=== PATIENT | male | born 1955 | race Caucasian/White ===

== ENCOUNTER 2022-04-10 08:48 | Outpatient (CLI) | payer BC, SELFPAY ==
[2022-04-10 13:51] LABS: Chloride* 102 mmol/L (96-114); Potassium* 4.3 mmol/L (3.6-5.1); Sodium* 140 mmol/L (135-149)
[2022-04-10 13:54] LABS: Carbon Dioxide* 30 mmol/L (20-32); Creatinine* 0.7 mg/dL (0.5-1.5); Estimated Glomerular Filt Rate 100 ml/min
[2022-04-10 13:55] LABS: Blood Urea Nitrogen* 21 mg/dL (7-30); Glucose* 113 mg/dL (60-115)
[2022-04-10 14:44] LABS: Vitamin B12* 206 pg/mL (243-894)
== END 2022-04-10 08:49 | disposition home or self-care (01) ==
PROVIDERS: Visit Provider Family Medicine
DX: Z00.00 Encounter for general adult medical examination without abnormal findings (principal); G62.9 Polyneuropathy, unspecified; R73.01 Impaired fasting glucose; Z86.79 Personal history of other diseases of the circulatory system
CPT/HCPCS: 80048; 82607; 84443

== ENCOUNTER 2022-05-14 08:52 | Outpatient (CLI) | payer BC, SELFPAY ==
[2022-05-14 14:33] LABS: Vitamin B12* 531 pg/mL (243-894)
== END 2022-05-14 08:53 | disposition home or self-care (01) ==
PROVIDERS: Visit Provider Family Medicine
DX: E53.8 Deficiency of other specified B group vitamins (principal)
CPT/HCPCS: 82607

== ENCOUNTER 2022-08-17 09:54 | Outpatient (CLI) | payer BC, SELFPAY ==
[2022-08-17 14:26] LABS: Cholesterol* 136 mg/dL (90-199)
[2022-08-17 14:27] LABS: HDL Cholesterol* 40 mg/dL (>=40); LDL Cholesterol Calculated 81 mg/dL (<100); Triglycerides* 74 mg/dL (40-149)
== END 2022-08-17 09:55 | disposition home or self-care (01) ==
PROVIDERS: PCP Family Medicine; Visit Provider Family Medicine
DX: Z86.39 Personal history of other endocrine, nutritional and metabolic disease (principal)
CPT/HCPCS: 80061

== ENCOUNTER 2022-09-26 09:52 | Outpatient (CLI) | payer BC, SELFPAY ==
[2022-09-26 13:42] LABS: Chloride* 105 mmol/L (96-114); Sodium* 142 mmol/L (135-149)
[2022-09-26 13:43] LABS: Potassium* 4.2 mmol/L (3.6-5.1)
[2022-09-26 13:45] LABS: Carbon Dioxide* 32 mmol/L (20-32); Creatinine* 0.7 mg/dL (0.5-1.5); Estimated Glomerular Filt Rate 100 ml/min
[2022-09-26 13:46] LABS: Blood Urea Nitrogen* 13 mg/dL (7-30); Calcium* 9.1 mg/dL (8.4-10.6); Glucose* 116 mg/dL (60-115)
== END 2022-09-26 09:53 | disposition home or self-care (01) ==
PROVIDERS: PCP Family Medicine; Visit Provider Family Medicine
DX: Z01.818 Encounter for other preprocedural examination (principal)
CPT/HCPCS: 80048

== ENCOUNTER 2022-11-13 10:28 | Outpatient (CLI) | payer BC, SELFPAY | END 2022-11-13 10:29 | disposition home or self-care (01) | LOC: OP CLINIC 10:30 | PROVIDERS: PCP Family Medicine; Visit Provider Surgery | DX: Z12.11 Encounter for screening for malignant neoplasm of colon (principal); K57.30 Diverticulosis of large intestine without perforation or abscess without bleeding; Z86.010 Personal history of colon polyps | CPT/HCPCS: 45378; 99153; J2250; J3010 ==

== ENCOUNTER 2023-03-04 15:29 | Outpatient (CLI) | payer BC, SELFPAY | END 2023-03-04 15:30 | disposition home or self-care (01) | LOC: LKVREF 15:30 | PROVIDERS: PCP Family Medicine; Visit Provider Family Medicine | DX: E66.9 Obesity, unspecified (principal); G62.9 Polyneuropathy, unspecified; L82.1 Other seborrheic keratosis; R91.1 Solitary pulmonary nodule; N40.0 Benign prostatic hyperplasia without lower urinary tract symptoms | CPT/HCPCS: 82607 ==

== ENCOUNTER 2023-03-12 09:36 | Outpatient (CLI) | payer BC, SELFPAY ==
--- NOTE | 2023-03-12 10:00 | CRLHL7_ITS ---
For Patients: As a result of the Century Cures Act, medical imaging exams and procedure reports are released immediately into your electronic medical record. You may view this report before your referring provider. If you have questions, please contact your health care provider. Indication: Solitary pulmonary nodule seen on heart scan in 2017, [facility] h/o lung cancer per patient Technique: Noncontrast CT chest Please note that all CT scans at this facility use dose modulation, iterative reconstruction, and/or weight-based dosing when appropriate to reduce radiation dose to as low as reasonably achievable. Comparison: None Findings: The visualized thyroid is within normal limits. Atherosclerotic disease including coronary artery calcifications. No pleural or pericardial effusion. Pancreatic atrophy. Punctate nonobstructing stones within both visualized kidneys. No calcified gallstone. Normal visualized liver and spleen. No enlarged mediastinal, hilar or axillary lymph nodes. Multiple pleural-based calcified nodular densities are present bilaterally. No suspicious pulmonary nodule or mass. No fracture. Impression: Benign calcified pleural-based nodules bilaterally. No suspicious nodules. No adenopathy. Bilateral nonobstructing nephrolithiasis. Please note that all CT scans at this facility use dose modulation, iterative reconstruction, and/or weight-based dosing when appropriate to reduce radiation dose to as low as reasonably achievable. Dictated by Jose Santos MD @ 03/12/2023 12:31:28 PM (Electronically Signed)
== END 2023-03-12 09:37 | disposition home or self-care (01) ==
LOC: CT 09:39
PROVIDERS: PCP Family Medicine; Visit Provider Family Medicine
DX: R91.1 Solitary pulmonary nodule (principal); N20.0 Calculus of kidney
CPT/HCPCS: 71250

== ENCOUNTER 2023-09-12 10:38 | Outpatient (CLI) | payer BC, SELFPAY ==
--- OUTSIDE RECORDS SUMMARY | 2023-09-12 10:42 | XMS_ITS | Referral Summary ---
Author Name Unknown Organization [facility] Address [address] [place] [address] Care Team Providers Care Public Health Aides Teacher Name Role Phone Unavailable Primary Care Provider Unavailabl e Social History Tobacco Use Types Packs/Day Years Used Date Smoking Tobacco: Never Assessed Adolescent Education Answer Date Record ed Getting School Help Needed Not on file 05/14 Sex and Gender Information Value Date Recorded Sex Assigned at Not on file Gender Identity Not on file Sexual Orientation Not on file Plan of Treatment Not on file
--- OUTSIDE RECORDS SUMMARY | 2023-09-12 10:42 | XMS_ITS | Encounter Summary ---
Author Name Unknown Organization [facility] [email or web address] [facility] Address [address] [address] Phone Care Team Providers Care Cake Press Operator Name Role Phone Bg Longoria MD Primary Care Provider Gabby Foster APRN, DROP HAMMER SETTER UP Unavailable + [phone] Reason for Referral * (Routine) - New Request Specialty Diagnoses / Procedures Referred By Garcia ingram Referred To Contact Endoscopy Diagnoses History of colon polyps Randy Frausto MD [address] [address] [facility] [address] [place] [id number] Referral ID Status Reason Start Date Expiration Date V isits Requested Visits Authorized [id number] New Request 04/03/2023 04/03/2024 1 1 Question Answer Schedule procedure for: Screening Colonoscopy Comments 5 year Encounter Details Date Type Department Care Team (Late st Contact Info) Description 04/03/2023 Orders Only [facility] GI 2023 [place], [place] [id number] Randy Frausto MD [address] [phone] History of colon polyps (Primary Dx) Social History Tobacco Use Types Packs/Day Years Used Date Smoking Tobacco: Never Smokeless Tobacco: Never Alcohol Use Standard Drinks/Week Comments Yes 13 (1 standard drink = 0.6 oz pu re alcohol) 1-2 PHQ-2 Answer Date Recorded PHQ-2 Total 0 03/07/2022 Sex and Gender Information Value Date Recorded Sex Assigned at Not on file Gender Identity Not on file Sexual Orientation Not on file Job Start Date Occupation Industry Not on file Not on file Not on file documented as of this encounter Functional Status Functional Status Response Date of Assess ment Patient's Vision Adequate to Safely Complete Daily Activities Yes 12/07/2019 Patient's Memory Adequate to Safely Complete Daily Activities Yes 12/07/2019 Cognitive Status Response Date of Assessm ent Patient's Judgment Adequate to Safely Complete Daily Activities Yes 12/07/2019 documented as of this encounter Plan of Treatment Scheduled Referrals Name Type Priority Associated Diagnoses Orde r Schedule SCHEDULE ENDOSCOPY PROCEDURE [facility] REFERRAL Routine History of colon polyps Ordered: 04/03/2023 documented as of this encounter Visit Diagnoses Diagnosis History of colon polyps- Primary Personal history of colonic polyps documented in this encounter Care Teams Cake Press Operator Relationship Specialty [place] [address] [place] [id number] PCP - General Family Medicine 10/29/12 Gabby Foster APRN, DROP HAMMER SETTER UP [address] [place] [phone] PCP - PC Team Family Medicine 10/30/16 documented as of this encounter
--- OUTSIDE RECORDS SUMMARY | 2023-09-12 10:42 | XMS_ITS | Clinical Summary ---
Author Name Unknown Organization [facility] Address [address] [address] Phone Care Team Providers Care Milking Machine Technician Name Role Phone Bg Longoria MD Primary Care Provider Gabby Foster APRN, ELECTRICAL INSPECTOR Unavailable +- [phone] Allergies No known active allergies Medications Medication Sig Dispensed Refills Start Date End Date Status aspirin EC 81 MG tablet Take 1 Tab by mouth one time a day. Do not split or crush. 100 Tab 0 10/16/2016 Active cholecalciferol, vitamin D3, 1000 Unit (25 mcg) tablet Take 1 Tab by mouth one time a day. 90 Tab 1 06/01/2019 Active amLODIPine (Norvasc) 10 MG tabletIndications:Es sential hypertension Take 1 Tablet by mouth one time a day. 90 Tablet 3 05/17/2021 Active atorvaSTATin (Lipitor) 40 MG tabletIndications:Mi xed hyperlipidemia Take 1 Tablet by mouth at bedtime. 90 Tablet 3 05/17/2021 Active losartan (Cozaar) 100 MG tabletIndications:Es sential hypertension Take 1 Tablet by mouth one time a day. 90 Tablet 3 05/17/2021 Active doxepin (SINEquan) 75 MG capsule TAKE TWO CAPSULES BY MOUTH DAILY AT BEDTIME 180 Capsule 3 07/11/2021 Active eszopiclone (Lunesta) 3 MG tabletIndications:Ps ychophysiological insomnia TAKE 1 TABLET BY MOUTH ONCE DAILY IMMEDIATELY BEFORE BEDTIME; DO NOT CRUSH OR BREAK TABLET. 90 Tablet 1 12/14/2021 Active ibuprofen (Motrin) 800 MG tablet Take 1 Tablet by mouth every eight hours as needed for Pain . Administer with food. 90 Tablet 0 2021 Active baclofen (Lioresal) 10 MG tabletIndications:St rain of lumbar region, initial encounter TAKE ONE TABLET BY MOUTH THREE TIMES DAILY with food. NEEDS APPOINTMENT BY 02/21/2023 FOR MORE REFILLS. 60 Tablet 0 01/23/2023 Active Active Problems Problem Noted Date Diagnosed Date Routine general medical exam ination at a health care facility 05/17/2021 Overview: 2018, Ritesh Family in Retiring from [facility] 2021 Not much hobbies left Has kids and grandkids in Moving to [facility] in [place] 03/2022 Last Assessment & Plan: Yearly blood work Keep active Eat Mediterranean diet Left hand pain 05/17/2021 Overview: Left 5th mcp, mobic helped, negative labs, normal uric acid Last Assessment & Plan: Due to persistent swelling, prednisone trial 05/17/2021 Left wrist pain 10/03/2020 Overview: Mild widening of SL space on xray 10/03/2020, brace given, declined orthopedics referral IFG (impaired fasting glucose) 11/11/2018 Overview: Normal A1C Last Assessment & Plan: Lower carbs, weight loss Class 1 obesity due to exces s calories with serious comorbidity and body mass index (BMI) of 33.0 to 33.9 in adult 11/06/2016 Coronary artery disease due to lipid rich plaque 10/01/2016 Overview: Based on coronary calcium score 2017 Lung nodule 09/30/2016 Overview: Found on heart scan 09/2016, repeat in one year, 5mm Essential hypertension 05/15/2016 Overview: Controlled Last Assessment & Plan: Continue medications (losartan, amlodipine) and follow up yearly Psychophysiological insomnia 05/15/2016 Overview: On lunesta Last Assessment & Plan: Sleep hygiene lunesta Overactive bladder 10/11/2015 Overview: Controlled on medications Last Assessment & Plan: Follow up with urology yearly Mixed hyperlipidemia 11/02/2014 Osteoarthritis Overview: Followed by orthopedics, dr. victor Had hip injection 2020 Last Assessment & Plan: Follow up with orthopedics as needed Resolved Problems Problem Noted Date Diagnosed Date Resolved Date Bilateral primary osteoarthritis of knee 02/22/2022 03/13/2022 Decreased range of motion of both knees 02/22/2022 03/13/2022 Bilateral leg weakness 02/22/202203/13 Skin lesion of chest wall 10/03/2020 Overview: Removed 10/03/2020, path pending Fracture of radial neck, left, closed 04/15/2019 06/18/2019 Stiffness in joint 04/15/2019 9 Pain aggravated by activities of daily living 04/15/20 19 06/18/2019 Contusion of left knee and l ower leg, subsequent encounter 01/28/2019 10/03/2020 Contusion of left forearm, s ubsequent encounter 01/28/2019 10/03/2020 Arm contusion, right, subsequent encounter 01/28/2019 10/03/2020 Abrasion of finger of left h and, subsequent encounter 01/28/2019 10/03/2020 Contusion of left hand, subsequent encounter 9 10/03/2020 S/P rotator cuff repair 07/26/201711/17 Shoulder weakness, left 07/26/201711/17 Decreased range of motion of left shoulder 07/26/2017 11/26/2017 Acute pain of left shoulder 07/26/2017 11/19/2017 S/P trigger finger release 05/07/2017 1 Pain in finger of left hand 05/07/2017 05/28/2017 Trigger finger, right index finger 05/15/2016 04/04/2017 Stiffness in joint 10/18/2015 7 Aftercare 10/18/2015 05/15/2016 Seborrheic keratosis 08/17/2015 017 Trigger finger of left hand 11/02/2014 05/15/2016 Atypical chest pain 10/29/2012 10/27/19 14 Pulmonary nodules/lesions, multiple 05/10/2012 11/02/2014 Prediabetes 05/09/2012 05/15/2016 Obesity 05/09/2012 11/06/2016 Thoracic back pain 09/11/2011 2 Overview: IMO Update 05/29 HCD (health care directive) 06/07/2008 11/19/2017 Insomnia 05/15/2016 Hypertension 05/15/2016 Anxiety 05/17/2021 Immunizations Name Administration Dates Next Due COVID-19 Vaccine: Pfizer [place] ster (Purple- 12+ Yrs) [facility] 05/28/2021 COVID-19 Vaccine: Pfizer Dos e 1 (Purple- 12+ Yrs) [facility] 10/12/2020 COVID-19 Vaccine: Pfizer Dos e 2 (Purple- 12+ Yrs) [facility] 11/04/2020 Influenza High Dose Quadrivalent 06/22/2020 Influenza Quad Preservative Free 05/15/2016,04/20 Influenza Quad Split 05/16/2017 Influenza Seasonal A,B Inj 6-35mo 06/17/2018 Influenza Seasonal Inj A,B 05/28/2021 Influenza Seasonal Inj A,B High Dose 07/28/2019 Influenza Seasonal Inj A,B P reservative Free 06/19/2012 Pneumovax 23 06/11/2021 TD >7yrs With Preservative 03/20/2005 Tdap (7 years and older) 12/07/2019,10/24/2012,0 03/20/2005 Zoster Zostavax (Shingles) 06/11/2021,11/02/2014 Surgical History Surgery Date Site/Laterality Comments ROTATOR CUFF REPAIR LUMBAR SPINE SURGERY L 5 COLONOSCOPY 10/2012 normal SHOULDER ARTHROSCOPY 07/19/2017 Shoulder/Left Procedure: LEFT SHOULDER ARTHROSCOPIC DECOMPRESSION, DISTAL CLAVICLE EXCISION, MINI-OPEN ROTATOR CUFF TEAR REPAIR; Surgeon: Chace Victor MD; Location: [facility] MAIN OR Medical devices from this surgery are in the Medical Devices section. COLONOSCOPY 11/12/2017 N/A Procedure: COLONOSCOPY DIAGNOSTIC; Surgeon: Randy Frausto MD; Location: [facility] ENDOSCOPY Medical History Medical History Date Comments Hyperlipidemia Insomnia Hypertension Osteoarthritis GERD (gastroesophageal reflux disease) Anxiety Colon polyps HCD (health care directive) 06/07/2008 Family History Medical History Relation Comments Lung Cancer Brother 1 Lung Cancer Brother 2 Schizophrenia Brother 2 Cardiovascular Disease Brother 3 Diabetes Brother 3 Cardiovascular Disease Brother 4 Unknown Cause Father Diabetes Father Lipid Elevation Father Vascular Disease Mother Relation Status Comments Brother 1 Brother 2 Brother 3 Brother 4 Father Mother Sister 1 Alive Sister 2 Alive Social History Tobacco Use Types Packs/Day Years Used Date Smoking Tobacco: Never Smokeless Tobacco: Never Tobacco Cessation:Counseling Given: No Alcohol Use Standard Drinks/Week Comments Yes 13 (1 standard drink = 0.6 oz pu re alcohol) 1-2 PHQ-2 Answer Date Recorded PHQ-2 Total 0 03/07/2022 Sex and Gender Information Value Date Recorded Sex Assigned at Not on file Gender Identity Not on file Sexual Orientation Not on file Job Start Date Occupation Industry Not on file Not on file Not on file Obstetrics History Last Filed Vital Signs Vital Sign Reading Time Taken Comments Blood Pressure 133/84 12/26/2021 9:17 AM CDT Pulse 71 12/26/2021 9:17 AM CDT Temperature 37.2 ??C (98.9 ??F) 12/26/2021 9:17 AM CD T Respiratory Rate 18 12/26/2021 9:17 AM CDT Oxygen Saturation 98% 05/07/2021 9:12 AM CDT Inhaled Oxygen Concentration - - Weight 120.4 kg (265 lb 6.9 oz) 03/07/2022 9:11 AM CDT Height 182.9 cm (6') 03/07/2022 9:11 AM CDT Body Mass Index 36 03/07/2022 9:11 AM CDT Plan of Treatment Health Maintenance Due Date Last Done Comments CT Colonography 1955 Cologuard 1955 FIT/FOBT 1955 Sigmoidoscopy 1955 RSV Vaccination (60+ yrs) (Abrysvo/Arexvy) (1 - 1-dose 60+ series) 2013 Shingrix (Zoster recombinant) vaccine (Standing Order) (1 of 2) 08/06/2021 Pneumococcal Vaccine: 65+ yrs (Standing Order) (2 of 2 - PCV) 06/11/2022 06/11/2021 COLONOSCOPY Q 5 YRS 11/12/2022 11/12/2017, 11/12/2017, 11/12/2012 (Previously completed) COVID-19 Vaccine (4 - 2022- season) 2023 05/28/2021, 11/04/2020, 10/12/2020 Influenza Vaccine Seasonal (Standing Order) (#1) 2023 05/28/2021, 06/22/2020, 07/28/2019, Additional history exists VASCULAR LIPID PROFILE Q5 YEARS (Standing Order) 05/17/2026 05/17/2021, 12/28/2019, 11/11/2018, Additional history exists Colonoscopy 11/13/2027 11/12/2017, 11/12/2017 Colorectal Cancer Screening 11/13/2027 TETANUS (Standing Order) 12/06/2029 020, 10/24/2012, 03/20/2005, Additional history exists PERTUSSIS (Standing Order) Completed 12/06, 10/24/2012, 03/20/2005 HPV Vaccine (Standing Order) Aged Out No longer eligible based on patient's age to complete this topic Hepatitis B Vaccine (Standing Order) Aged Out No longer eligible based on patient's age to complete this topic Medical Devices Implanted Type Area Dietary Tech Device Identifier Shelf Expiration Date Model / Serial / Lot [employer] Suture Double Loaded Swivelock 4.75 X 22 Mm Art [id number] - [id number] Implanted:Qty: 1 on 07/19/2017 by Chace Victor MD at [facility] Left: Shoulder ARTHREX 01/16/2019 [id number] / [id number] / [id number] Advance Directives For more information, please contact: [phone] Documents on File Type Date Recorded Patient Nurse Expl anation Advance Directive 06/07/2008 11:34 AM ADV ANCE DIRECTIVE Latest Code Status on File Code Status Date Activated Date Inactivated Comments Full Code 07/19/2017 3:48 PM 07/20/2017 4:11 PM Code Status History Code Status Date Activated Date Inactivated Comments Full Code 07/19/2017 10:49 AM 07/19/2017 3:48 PM Care Teams Milking Machine Technician Relationship Specialty [place] [address] [place] [address] PCP - General Family Medicine 10/29/12 Gabby Foster BUSINESS JOB TITLES, ELECTRICAL INSPECTOR [address] [place] [address] PCP - PC Team Family Medicine 10/30/16
--- OUTSIDE RECORDS SUMMARY | 2023-09-12 10:42 | XMS_ITS | Encounter Summary ---
Author Name Unknown Organization [facility] Address [address] [place] [address] Care Team Providers Care Cardiac Monitor Technician Name Role Phone Unavailable Primary Care Provider Unavailabl e Encounter Details Date Type Department Care Team (Late st Contact Info) Description 04/23/2023 10:35 AM CDT [facility] [address] [place] [address] Restless legs syndrome (RLS) (Primary Dx); Peripheral nerve disorder Social History Tobacco Use Types Packs/Day Years Used Date Smoking Tobacco: Never Assessed Sex and Gender Information Value Date Recorded Sex Assigned at Not on file Gender Identity Not on file Sexual Orientation Not on file COVID-19 Exposure Response Date Recorded In the last 10 days, have yo u been in contact with someone who was confirmed or suspected to have Coronavirus/COVID-19? No / Unsure 04/23/2023 10:38 AM CDT documented as of this encounter Plan of Treatment Not on file documented as of this encounter Procedures Procedure Name Priority Date/Time Associated Diagnosis Comments PROTEIN ELECTROPHORESIS, SERUM Routine 04/23/2023 10:50 AM CDT Restless legs syndrome (RLS) Peripheral nerve disorder TOTAL PROTEIN, SERUM FOR ELP Routine 04/23/2023 10:50 AM CDT Restless legs syndrome (RLS) Peripheral nerve disorder PROTEIN IMMUNOFIXATION SERUM Routine 04/23/2023 10:50 AM CDT Restless legs syndrome (RLS) Peripheral nerve disorder TSH WITH FREE T4 REFLEX Routine 04/23/20 10:50 AM CDT Restless legs syndrome (RLS) Peripheral nerve disorder FERRITIN Routine 04/23/2023 10:50 AM CDT Restless legs syndrome (RLS) Peripheral nerve disorder PROTEIN ELECTROPHORESIS Routine 04/23/20 10:50 AM CDT Restless legs syndrome (RLS) Peripheral nerve disorder documented in this encounter Results * Protein Electrophoresis, Serum (04/23/2023 10:50 AM CDT) Albumin 4.3 3.7 - 5.1 g/dL 04/24/2023 2:29 PM CDT [facility] C[facility]/PROT/E NDO Alpha 1 0.3 0.2 - 0.4 g/dL 04/24/2023 2:29 PM CDT [facility] SPECIAL[facility] CORE/PROT/E NDO Alpha 2 0.7 0.5 - 0.9 g/dL 04/24/2023 2:29 PM CDT [facility] CORE/PROT/E NDO Beta Globulin 0.8 0.6 - 1.0 g/dL 04/24/2023 2:29 PM CDT [facility] CORE/PROT/E NDO Gamma Globulin 0.8 0.7 - 1.6 g/dL 04/24/2023 2:29 PM CDT [facility] CORE/PROT/E NDO Monoclonal Peak 0.0 <=0.0 g/dL 04/24/2023 2:29 PM CDT [facility] CORE/PROT/E NDO ELP Interpretation Essentially normal electrophoretic pattern with no obvious monoclonal protein seen by capillary electrophoresis. However, a very small monoclonal protein band was seen in this sample by immunofixation which is a much more sensitive method for monoclonal detection. See immunofixation report on same specimen. Pathologic significance requires clinical correlation. Andrea Bernard M.D., Ph.D., Pathologist ([phone]). 04/24/2023 2:29 PM CDT [facility] CORE/PROT/E NDO Blood STRUCTURE OF LEFT UPPER LIMB / Unknown Venipuncture / Unknown 04/23/2023 10:50 AM CDT 04/23/2023 10:51 AM CDT Giovanni Moreira MD LAB - BLOOD ORDER DEVON [facility] SPECIAL[facility] CORE/PROT/ENDO Specialty Core/Prot/Endo [address] [facility] [address] [facility], Room [address] [phone] * Total Protein, Serum for ELP (04/23/2023 10:50 AM CDT) Total Protein Serum for ELP 7.0 6.4 - 8.3 g/dL 04/23/2023 2:27 PM CDT [facility] Blood STRUCTURE OF LEFT UPPER LIMB / Unknown Venipuncture / Unknown 04/23/2023 10:50 AM CDT 04/23/2023 10:51 AM CDT Giovanni Moreira MD LAB - BLOOD ORDER [facility] LABORATORY [facility] Core Lab [address] [facility] [address] [facility], [address] [id number], [facility] [phone] * Protein Immunofixation Serum (04/23/2023 10:50 AM CDT) Immunofixation ELP Very small monoclonal IgM immunoglobulin of lambda light chain type. Pathologic significance requires clinical correlation. Andrea Bernard M.D., Ph.D., Pathologist ([phone]) 04/24/2023 2:22 PM CDT SPECIALTY CORE/PROT/E NDO Blood STRUCTURE OF LEFT UPPER LIMB / Unknown Venipuncture / Unknown 04/23/2023 10:50 AM CDT 04/23/2023 10:51 AM CDT Giovanni Moreira MD LAB - BLOOD ORDER DEVON [facility] SPECIAL[facility] CORE/PROT/ENDO Specialty Core/Prot/Endo [address] [facility] [address] [facility], [address] [phone] * TSH with free T4 reflex (04/23/2023 10:50 AM CDT) TSH 1.99 0.30 - 4.20 uIU/mL 04/23/2023 11:38 AM CDT [facility] Blood STRUCTURE OF LEFT UPPER LIMB / Unknown Venipuncture / Unknown 04/23/2023 10:50 AM CDT 04/23/2023 10:51 AM CDT Giovanni Moreira MD LAB - BLOOD ORDER DEVON [facility] Lab [address] Lab (1st floor, no room number) [place] [address], [facility] [phone] * Ferritin (04/23/2023 10:50 AM CDT) Ferritin 87 31 - 409 ng/mL 04/23/2023 5:59 PM CDT [facility] Blood STRUCTURE OF LEFT UPPER LIMB / Unknown Venipuncture / Unknown 04/23/2023 10:50 AM CDT 04/23/2023 10:51 AM CDT Giovanni Moreira MD LAB - BLOOD ORDER DEVON [facility] Core Lab [address] [facility], [address] [place] [address], [place] [phone] documented in this encounter Visit Diagnoses Diagnosis Restless legs syndrome (RLS)- Primary 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
--- OUTSIDE RECORDS SUMMARY | 2023-09-12 10:42 | XMS_ITS | Clinical Summary ---
Author Name Unknown Organization [facility] Address [address] [place] [address] Care Team Providers Care Herb Digger Name Role Phone Unavailable Primary Care Provider Unavailabl e Social History Tobacco Use Types Packs/Day Years Used Date Smoking Tobacco: Never Assessed Adolescent Education Answer Date Record ed Getting School Help Needed Not on file 05/14 Sex and Gender Information Value Date Recorded Sex Assigned at Not on file Gender Identity Not on file Sexual Orientation Not on file Plan of Treatment Health Maintenance Due Date Last Done Comments ADVANCE CARE PLANNING 1955 ANNUAL REVIEW OF HM ORDERS 1953 CT COLONOGRAPHY 1953 FIT 1955 FLEX SIG 1953 sDNA (Cologuard) 1955 COLONOSCOPY 12/19/1963 COLORECTAL CANCER SCREENING 12/19/1963 HEPATITIS C SCREENING 12/19/1971 LIPID 1988 RSV VACCINE ( & 60+) (1 - 1-dose 60+ series) 2013 AORTIC ANEURYSM SCREENING (SYSTEM ASSIGNED) 2018 FALL RISK ASSESSMENT 2018 MEDICARE ANNUAL WELLNESS VISIT 2018 Pneumococcal Vaccine: 65+ Years (2 of 2 - PCV) 06/11/2022 06/11/2021 COVID-19 Vaccine ( - 2022- season) 2023 11/29/2021, 05/28/2021, 11/04/2020, Additional history exists INFLUENZA VACCINE (#1) 2023 2, 05/28/2021, 05/28/2021, Additional history exists PHQ-2 (once per calendar year) 2023 DTAP/TDAP/TD IMMUNIZATION (5 - Td or Tdap) 12/06/2029 12/07/2019, 10/24/2012, 03/20/2005, Additional history exists ZOSTER IMMUNIZATION Completed 07/19/2022, 06/11/2021, 06/11/2021, Additional history exists HPV IMMUNIZATION Aged Out No longer e ligible based on patient's age to complete this topic IPV IMMUNIZATION Aged Out No longer e ligible based on patient's age to complete this topic MENINGITIS IMMUNIZATION Aged Out No l onger eligible based on patient's age to complete this topic RSV MONOCLONAL ANTIBODY Aged Out No l onger eligible based on patient's age to complete this topic
--- OUTSIDE RECORDS SUMMARY | 2023-09-12 10:42 | XMS_ITS | Encounter Summary ---
Author Name Unknown Organization [facility] [email or web address] [facility] Address [address] [address] Phone Care Team Providers Care Mixer And Scaler Name Role Phone Bg Longoria MD Primary Care Provider [phone] Gabby Foster APRN, RAILROAD DESIGN CONSULTANT Unavailable + [phone] Reason for Visit * Reason Comments Refill Request baclofen (Lioresal) 10 MG Encounter Details Date Type Department Care Team (Late st Contact Info) Description 12/14/2022 Refill [facility] [address] [place] [address] [place] [address] [place] [address] Refill Request (baclofen (Lioresal) 10 MG) Social History Tobacco Use Types Packs/Day Years [...] Yes 12/07/2019 documented as of this encounter Ordered Prescriptions Prescription Sig Dispensed Refills Start Date End Da te baclofen (Lioresal) 10 MG tabletIndications:Strain of lumbar region, initial encounter TAKE ONE TABLET BY MOUTH THREE TIMES DAILY with food 60 Tablet 0 12/14/2022 01/22/2023 documented in this encounter Miscellaneous Notes * Telephone Encounter - Jes Hardwick, RN - 12/14/2022 3:41 PM CDT Bg Longoria MD, Nurse Care Line is unable to refill this medication per the [facility] Medication Refill Standing Orders. Medication cannot be delegated. Would you like to authorize this request? Thank You. documented in this encounter Plan of Treatment Not on file documented as of this encounter Visit Diagnoses Diagnosis Strain of lumbar region, initial encounter documented in this encounter Discontinued Medications Medication Sig Discontinue Reason Start Date End Da te baclofen (Lioresal) 10 MG tabletIndications:Strain of lumbar region, initial encounter TAKE 1 TABLET BY MOUTH THREE TIMES DAILY. TAKE WITH FOOD. 08/06/2022 12/14/2022 documented as of this encounter Care Teams Mixer And Scaler Relationship Specialty [place] [address] [place] [phone] PCP - General Family Medicine 10/29/12 Gabby Foster, PUBLIC HEALTH MICROBIOLOGIST, RAILROAD DESIGN CONSULTANT [address] [place] [phone] PCP - PC Team Family Medicine 10/30/16 documented as of this encounter
--- OUTSIDE RECORDS SUMMARY | 2023-09-12 10:42 | XMS_ITS | Encounter Summary ---
Author Name Unknown Organization [facility] [employer] [facility] [facility] Address [address] [address] Phone Care Team Providers Care Rug Cleaner Hand Name Role Phone Vinh Youssef MD Primary Care Provider Gabby Foster APRN, CHARGER TESTER Unavailable + [phone] Reason for Visit * Reason Comments Refill Request Baclofen Encounter Details Date Type Department Care Team (Late st Contact Info) Description 01/22/2023 Refill [facility]INE [address] [place] [address] [place] [address] [place] [address] Refill Request (Baclofen) Social History Tobacco Use Types Packs/Day Years [...] End Da te baclofen (Lioresal) 10 MG tabletIndications:Strai n of lumbar region, initial encounter TAKE ONE TABLET BY MOUTH THREE TIMES DAILY with food. NEEDS APPOINTMENT BY 02/21/2023 FOR MORE REFILLS. 60 Tablet 0 01/23/2023 documented in this encounter Miscellaneous Notes * Telephone Encounter - Ankit Tolbert, RN - 01/22/2023 9:35 PM CDT Vinh Youssef MD, Nurse Care Line is unable to refill this medication per the [facility] Medication Refill Protocol. Would you like to authorize this request? * Telephone Encounter - Utility, Refill Wizard - 01/22/2023 6:44 PM CDT baclofen (Lioresal) 10 MG tablet [Pharmacy Med Name: Baclofen Oral Tablet 10 MG] Unassigned -> Medication cannot be delegated. Last qualifying visit: 12/26/2021 (with VINH YOUSSEF) Next scheduled visit: None Last ordered by VINH YOUSSEF: 12/14/2022 (39 days ago) QTY: 60, Refills: 0, Sig: take one tablet by mouth three times daily with food (unchanged) Last fill date from pharmacy: 12/14/2022 PATIENT IS DUE FOR: - OFFICE VISIT for multiple medications including doxepin (SINEquan) 75 MG capsule (Recommended on 12/14/2022) [facility] Embedded Refills, Reference: [id number], 01/22/2023 6:44:53 PM CDT, Pool: FRANK ([id number]) documented in this encounter Plan of Treatment Not on file documented as of this encounter Visit Diagnoses Diagnosis Strain of lumbar region, initial encounter documented in this encounter Discontinued Medications Medication Sig Discontinue Reason Start Date End Da te baclofen (Lioresal) 10 MG tabletIndications:Strain of lumbar region, initial encounter TAKE ONE TABLET BY MOUTH THREE TIMES DAILY with food 12/14/2022 01/22/2023 documented as of this encounter Care Teams Rug Cleaner Hand Relationship Specialty [place] [address] [email or web address] [address] PCP - General Family Medicine 10/29/12 Gabby Foster, REDYE HAND, CHARGER TESTER [address] [email or web address] [address] PCP - PC Team Family Medicine 10/30/16 documented as of this encounter
--- OUTSIDE RECORDS SUMMARY | 2023-09-12 10:42 | XMS_ITS | Encounter Summary ---
Author Name Unknown Organization [facility] Address [address] [place] [address] Care Team Providers Care Belt Changer Name Role Phone Unavailable Primary Care Provider Unavailabl e Encounter Details Date Type Department Care Team (Latest Contact Info) Description 04/23/2023 Travel Social History Tobacco Use Types Packs/Day Years [...] documented as of this encounter Visit Diagnoses Not on filedocumented in this encounter
--- OUTSIDE RECORDS SUMMARY | 2023-09-12 10:43 | XMS_ITS | Data Portability ---
Author Name Unknown Address [address] [place] [address] Phone [phone] Organization [facility] Address [address] [place] [address] Assessment No assessment recorded. Plan of Treatment Reminders Order Date Submit Date Provider Last Modified By Organization Details Last Modified Time Details Appointments None recorded. Lab PSA, total, serum or plasma 2021 [email or web address] Not available 12:33:41 Referral None recorded. Procedures None recorded. Surgeries None recorded. Imaging None recorded. Medication Orders tamsulosin 0.[address] [id number], [address], [place], [address], 12:25:05 Patient TargetsNo targets recorded. Patient InstructionsNo instructions recorded. Reason for Referral None Reported. Results Created Date Observation Date Name Description Value Unit Range Abnormal Flag LastModifiedBy Organization Detail LastModifiedTime 07/04/2007/02/2022 bladd er scan (PROC ) No observ ation record ed. BARCODE Not Available 07/04/2022 09:13:32 Result Notes None recorded. Procedures Surgical History Date Name Laterality Status Provider Name and Address Organization Details Recorded Time Bladder Scan completed Pascual Kaplan MD [address] [place] [address],[address], [place], [address], [facility] 07/02/2022 11:44:47 Imaging Results Imaging Date Name Status LastModified by Organiz ation Details LastModified Time 07/02/2022 bladder scan (PROC) completed BARCODE Information not available 07/04/2022 09:13:32 Procedure Notes None recorded. Medical Equipment None Reported. Allergies No known drug allergies Medications Name Sig Start Date Stop Date Status Note LastModified by Organization Details LastModified Time atorvastatin 40 mg tablet Take 1 Tablet by mouth at bedtime. active Not Available Not Available No t Available ibuprofen 800 mg tablet Take 1 Tablet by mouth every eight hours as needed for Pain . Administer with food. active Not Available Not Available N ot Available doxepin 75 mg capsule TAKE TWO CAPSULES (150mg) BY MOUTH DAILY AT BEDTIME active Not Available Not Available N ot Available tamsulosin 0.4 mg capsule TAKE 1 CAPSULE BY MOUTH ONE TIME DAILY, needs appointment for further refills 2022 active Not Available Not Available Not Avai lable baclofen 10 mg tablet TAKE 1 TABLET BY MOUTH THREE TIMES DAILY. TAKE WITH FOOD. active Not Available Not Available N ot Available amlodipine 10 mg tablet Take 1 Tablet by mouth one time a day. active Not Available Not Available Not Available gabapentin 100 mg capsule TAKE ONE CAPSULE BY MOUTH THREE TIMES DAILY active Not Available Not Available Not Available losartan 100 mg tablet Take 1 Tablet by mouth one time a day. active Not Available Not Available Not Available eszopiclone 3 mg tablet TAKE 1 TABLET BY MOUTH AT BEDTIME active Not Available Not Available No t Available Vitals Date Recorded Body height Body mass index (BMI) Body weight Provider Name and Address Organization Details Last Updated DateTime 07/02/2022 182.88 cm 35.9 kg/m2 323470.98 g Pascual Kaplan MD [address] [place] [address], [address] 07/02/2022 11:41:53 Social History Question Answer Notes LastModified by Organizat ion Details LastModified Time Tobacco Smoking Status Never Smoker Pascual Kaplan MD [address] [place] [address],[address], [address], [facility] 07/02/2022 11:42:13 What Was The Date Of Your Most Recent Tobacco Screening? 07/02/2022 [email or web address] Information not available 07/02/2022 Sex: Male Functional Status None recorded. Mental Status None recorded. Family History Nothing Reported. Medical History No medical history recorded. Past Encounters Encounter ID Performer Location Encounter Start Date Encounter Closed Date Diagnosis/Indication [id number] Pascual Kaplan MD _Christy [address] [place] [address] 07/02/2022 11:36:33 07/05/2022 16:00:18 Lower urinary tract symptoms due to benign prostatic hypertrophy Health Concerns Section Related Observation LastModified by Organization Detai ls LastModified Time None Recorded Concern Status LastModified by Organization Details LastModified Time None Recorded Advance Directives Directive None Recorded Payers Encounter Date Sequence Insurance Name Policy Number Policy Evans Covered Member ID Evans Member ID Guarantor Name 07/02/2022 1 [facility]: [employer] 111 Leonides Vo [id number] Leonides Vo Notes Date Note Type Note Provider Name and Address Organization Details Recorded Time 07/02/2022 text/html HPI Notes: 66 yo male with history of HTN, hyperlipidemia, BPH, and overactive bladder - presents to establish care (recently k . No Family Hx of prostate cancer. He had seen Dr. Leonides Daley in the past. He has tried Oxybutynin ER 5 mg daily (didn't tolerate it), Myrbetriq 50 mg daily (no significant change) and Flomax 0.4 mg daily (minimal change). He voids every 3-5 hours during the day and 3x/night. He notes slow stream, occasional hesitancy, and rare urgency - denies dysuria. - PVR = 71 mL PSA - 0.40 (2009) - 0.58 (12/28/19) - 0.87 (05/17/21) Pascual Kaplan MD [address] [place] [address],[address], [place], [address], [facility] 07/02/2022 23:02:08
--- OUTSIDE RECORDS SUMMARY | 2023-09-12 10:43 | XMS_ITS | Encounter Summary ---
Author Name Unknown Organization [facility] Address [address] [address] Phone Care Team Providers Care Alumni Relations Manager Name Role Phone Bg Longoria MD Primary Care Provider Gabby Foster APRN, POLISHER SAND Unavailable + [phone] Encounter Details Date Type Department Care Team (Late st Contact Info) Description 06/21/2017 HISTORY and PHYSICAL PREOP [facility] [address] [place] [address] Chace Victor MD [address] [place] [address] Social History Tobacco Use Types Packs/Day Years Used Date Smoking Tobacco: Never Smokeless Tobacco: Never Alcohol Use Standard Drinks/Week Comments Yes 12 (1 standard drink = 0.6 oz pu re alcohol) Sex and Gender Information Value Date Recorded Sex Assigned at Not on file Gender Identity Not on file Sexual Orientation Not on file Job Start Date Occupation Industry Not on file Not on file Not on file documented as of this encounter OR Notes * OR PreOp - Chace Victor MD - 06/21/2017 6:56 AM CDT [facility] Patient Name: LEROY CHAMP Rosa Isela Date of Service: 06/21/2017 : 1955 Age: 61Y Sex: M Site MRN: Patient Loc/Room #: / Provider: Chace Victor MD, Orthopedics PREOPERATIVE HISTORY AND PHYSICAL SITE: NA Going to be operation done on Wednesday, July 19, 2017. HISTORY OF PRESENT ILLNESS: Mr. Vo is a 61-year-old gentleman who I have been following for left shoulder rotator cuff impingement and partial- thickness rotator cuff tear treated with considerable conservative management including antiinflammatories and Tylenol with limited relief. Has seen the physical therapist and has been doing his exercises with limited relief. He has had cortisoneinjection in the shoulder which gave him good relief of this pain but for a very short period of time. Been having pain at night limiting him in terms of activities. Pain with activities with his armout in front of him or out to the side. I believe he has failed conservative management. I have offered him a left shoulder arthroscopy, decompression, distal clavicle excision, and possible mini open rotator cuff tear repair and he wished to proceed. PAST MEDICAL HISTORY: Significant for hypertension. He has hypercholesterolemia. PAST SURGICAL HISTORY: Right knee arthroscopy and a left index finger trigger digit release. MEDICATIONS: ?? Amlodipine. ?? Aspirin. ?? Doxepin. ?? Ibuprofen. ?? Losartan. ?? Lunesta. ?? Simvastatin. ALLERGIES: No known drug allergies. REVIEW OF SYSTEMS: Essentially negative. FAMILY HISTORY: Noncontributory. No history of bleeding problems, blood clotting problems or anesthetic problems. SOCIAL HISTORY: He is . Works at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 Lives in the [place]. HABITS: Nonsmoker. Social alcohol use. EXAM: On exam, well-developed, well-nourished male in no acute distress. Alert and oriented x4, nonfocal. Left shoulder forward flexion, abduction actively to 140 degrees, passively I am able to takehim to near full, rotator strength 5/5, internal and external rotation without pain. Abduction is 4/5 with moderate amount of pain. Positive crossarm test. Tenderness at the AC joint. Positive Neer and positive Maurer impingement sign. Positive Speed's test, 2+ radial and ulnar pulses. Motor and sensation intact distally. ASSESSMENT: Left shoulder rotator cuff impingement, AC joint primary osteoarthritis, and rotator cuff tear. PLAN: I had a long discussion with him that treatment options. I believe he has failed extensive conservative management. I have offered him a left shoulder arthroscopy, decompression, distal clavicle excision, mini open rotator cuff tear repair and he wished to proceed. He did have an MRI scan of his shoulder which demonstrated evidence of partial tears of both the supraspinatus and infraspinatus. Will be seen by his primary care physician. All of his questions answered. Chace Victor MD [facility] Orthopedics cc: /CM Job ID: [id number] /[email or web address](txt) Document ID: [id number] documented in this encounter Plan of Treatment Not on file documented as of this encounter Visit Diagnoses Not on filedocumented in this encounter Care Teams Alumni Relations Manager Relationship Specialty [place] [address] [place] [address] PCP - General Family Medicine 10/29/12 Gabby Foster, ASSISTANT PROFESSOR OF BUSINESS, POLISHER SAND [address] [place] [address] PCP - PC Team Family Medicine 10/30/16 documented as of this encounter
--- OUTSIDE RECORDS SUMMARY | 2023-09-12 10:43 | XMS_ITS | Encounter Summary ---
Author Name Unknown Organization [facility] Address [address] [address] Phone Care Team Providers Care Linux Server Engineer Name Role Phone Bg Longoria MD Primary Care Provider Gabby Foster APRN, OIL WELL SERVICE OPERATOR HELPER Unavailable + [phone] Reason for Visit * Reason Comments Refill Request Baclofen Encounter Details Date Type Department Care Team (Late st Contact Info) Description 03/01/2022 Refill [facility] MEDICINE [address] [place] [address] [place] [address] [place] [address] Refill Request (Baclofen) Social History Tobacco Use Types Packs/Day Years Used Date Smoking Tobacco: Never Smokeless Tobacco: Never Alcohol Use Standard Drinks/Week Comments Yes 13 (1 standard drink = 0.6 oz pu re alcohol) 1-2 PHQ-2 Answer Date Recorded PHQ-2 Total 0 02/13/2022 Sex and Gender Information Value Date Recorded Sex Assigned at Not on file Gender Identity Not on file Sexual Orientation Not on file Job Start Date Occupation Industry Not on file Not on file Not on file COVID-19 Exposure Response Date Recorded In the last 10 days, have yo u been in contact with someone who was confirmed or suspected to have Coronavirus/COVID-19? No / Unsure 02/22/2022 6:56 AM CDT documented as of this encounter Functional Status [...] MOUTH THREE TIMES DAILY. TAKE WITH FOOD. 90 Tablet 2 03/04/2022 08/06/2022 documented in this encounter Miscellaneous Notes * Telephone Encounter - Ankit Tolbert RN - 03/01/2022 10:21 PM CDT Bg Longoria MD, Nurse Care Line is unable to refill this medication per the [facility] Medication Refill Protocol. Would you like to authorize this request? documented in this encounter Plan of Treatment Not on file documented as of this encounter Visit Diagnoses Diagnosis Strain of lumbar region, initial encounter documented in this encounter Discontinued Medications Medication Sig Discontinue Reason Start Date End Da te baclofen (Lioresal) 10 MG tabletIndications:Strain of lumbar region, initial encounter TAKE 1 TABLET BY MOUTH THREE TIMES DAILY. TAKE WITH FOOD. 08/16/2021 03/01/2022 documented as of this encounter Care Teams Linux Server Engineer Relationship Specialty [place] [address] [place] [phone] PCP - General Family Medicine 10/29/12 Gabby Foster, PRODUCE ASSOCIATE, OIL WELL SERVICE OPERATOR HELPER [address] [place] [phone] PCP - PC Team Family Medicine 10/30/16 documented as of this encounter
--- OUTSIDE RECORDS SUMMARY | 2023-09-12 10:43 | XMS_ITS | Encounter Summary ---
Author Name Unknown Organization [facility] [employer] [facility] Address [address] [address] Phone Care Team Providers Care Machine Leather Trimmer Name Role Phone Bg Longoria MD Primary Care Provider Gabby Foster APRN, STOCK LETTERER Unavailable + [phone] Reason for Visit * Reason Comments Refill Request baclofen Encounter Details Date Type Department Care Team (Late st Contact Info) Description 08/05/2022 Refill [facility] MEDICINE [address] [place] [address] [place] [address] [place] [address] Refill Request (baclofen) Social History Tobacco Use Types Packs/Day Years [...] DAILY. TAKE WITH FOOD. 90 Tablet 2 08/06/2022 12/14/2022 documented in this encounter Miscellaneous Notes * Telephone Encounter - Iris Manzanares RN - 08/06/2022 1:55 AM CST Bg Longoria MD, Nurse Care Line is unable to refill this medication per the [facility] Medication Refill Standing Orders. Would you like to authorize this request? Thank You. ENGINEER documented in this encounter Plan of Treatment Not on file documented as of this encounter Visit Diagnoses Diagnosis Strain of lumbar region, initial encounter documented in this encounter Discontinued Medications Medication Sig Discontinue Reason Start Date End Da te baclofen (Lioresal) 10 MG tabletIndications:Strain of lumbar region, initial encounter TAKE 1 TABLET BY MOUTH THREE TIMES DAILY. TAKE WITH FOOD. 03/04/2022 08/06/2022 documented as of this encounter Care Teams Machine Leather Trimmer Relationship Specialty [place] [address] [place] [phone] PCP - General Family Medicine 10/29/12 Gabby Foster, ASSEMBLY STOCK SUPERVISOR, STOCK LETTERER [address] [place] [address] PCP - PC Team Family Medicine 10/30/16 documented as of this encounter
== END 2023-09-12 10:39 | disposition home or self-care (01) ==
PROVIDERS: PCP Family Medicine; Visit Provider Family Medicine
DX: N40.0 Benign prostatic hyperplasia without lower urinary tract symptoms (principal); Z86.79 Personal history of other diseases of the circulatory system
CPT/HCPCS: 80053; G0103

== ENCOUNTER 2023-09-19 09:50 | Outpatient (CLI) | payer BC, SELFPAY ==
--- OUTSIDE RECORDS SUMMARY | 2023-09-19 09:54 | XMS_ITS | Referral Summary ---
Author Name Unknown Organization [facility] Address [address] [place] [address] Care Team Providers Care Mitochondrial Disorders Counselor Name Role Phone Unavailable Primary Care Provider [...]
--- OUTSIDE RECORDS SUMMARY | 2023-09-19 09:54 | XMS_ITS | Clinical Summary ---
Author Name Unknown Organization [facility] Address [address] [place] [address] Care Team Providers Care Getter Welder Name Role Phone Unavailable Primary Care Provider [...] Additional history exists INFLUENZA VACCINE (#1) 2023 , 05/28/2021, 05/28/2021, Additional history exists PHQ-2 (once [...]
--- OUTSIDE RECORDS SUMMARY | 2023-09-19 09:54 | XMS_ITS | Encounter Summary ---
Author Name Unknown Organization [facility] Address [address] [place] [address] Care Team Providers Care Shape Carver Name Role Phone Unavailable Primary Care Provider [...]
--- OUTSIDE RECORDS SUMMARY | 2023-09-19 09:54 | XMS_ITS | Encounter Summary ---
Author Name Unknown Organization [place] Address [address] [place] [address] Care Team Providers Care Meeting Coordinator Name Role Phone Unavailable Primary Care Provider Unavailabl e Encounter Details Date Type Department Care Team (Late st Contact Info) Description 04/23/2023 10:35 AM CDT [facility] [address] [place] [address] Restless legs syndrome (RLS) (Primary [...] clinical correlation. Andrea Bernard M.D., Ph.D., Pathologist ([phone]). 04/24/2023 2:29 PM CDT [facility] CORE/PROT/E NDO Blood STRUCTURE OF LEFT UPPER LIMB / Unknown Venipuncture / Unknown 04/23/2023 10:50 AM CDT 04/23/2023 10:51 AM CDT Giovanni Moreira MD LAB - BLOOD ORDER DEVON [facility] SPECIAL[facility] CORE/PROT/ENDO Specialty Core/Prot/Endo [address] [facility] Unit [facility], Room [address] [phone] * Total Protein, Serum for ELP (04/23/2023 10:50 AM CDT) Total Protein Serum for ELP 7.0 6.4 - 8.3 g/dL 04/23/2023 2:27 PM CDT [facility] LABORAT[facility] Blood STRUCTURE OF LEFT UPPER LIMB / Unknown Venipuncture / Unknown 04/23/2023 10:50 AM CDT 04/23/2023 10:51 AM CDT Giovanni Moreira MD LAB - BLOOD ORDER DEVON LABORATORY [facility] [address] [facility] Unit [facility], [address] [id number], [facility] [phone] * Protein Immunofixation Serum (04/23/2023 10:50 AM CDT) Immunofixation ELP Very small monoclonal IgM immunoglobulin of lambda light chain type. Pathologic significance requires clinical correlation. Andrea Bernard M.D., Ph.D., Pathologist ([phone]) 04/24/2023 2:22 PM CDT SPECIALTY CORE/PROT/E NDO Blood STRUCTURE OF LEFT UPPER LIMB / Unknown Venipuncture / Unknown 04/23/2023 10:50 AM CDT 04/23/2023 10:51 AM CDT Giovanni Moreira MD LAB - BLOOD ORDER DEVON [facility] SPECIAL[facility] CORE/PROT/ENDO Specialty Core/Prot/Endo [address] [facility] [address] [facility], Room [address] [phone] * TSH with free T4 reflex (04/23/2023 10:50 AM CDT) TSH 1.99 0.30 - 4.20 uIU/mL 04/23/2023 11:38 AM CDT [facility] Blood STRUCTURE OF LEFT UPPER LIMB / Unknown Venipuncture / Unknown 04/23/2023 10:50 AM CDT 04/23/2023 10:51 AM CDT Giovanni Moreira MD LAB - BLOOD ORDER DEVON [facility]ORAT[facility] Lab [address] Lab (1st floor, no room number) [place] [address], [facility] [phone] * Ferritin (04/23/2023 10:50 AM CDT) Ferritin 87 31 - 409 ng/mL 04/23/2023 5:59 PM CDT [facility] Blood STRUCTURE OF LEFT UPPER LIMB / Unknown Venipuncture / Unknown 04/23/2023 10:50 AM CDT 04/23/2023 10:51 AM CDT Giovanni Moreira MD LAB - BLOOD ORDER DEVON [facility] [address] 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
--- OUTSIDE RECORDS SUMMARY | 2023-09-19 09:55 | XMS_ITS | Clinical Summary ---
Author Name Unknown Organization [facility] [employer] [facility] Address [address] [address] Phone Care Team Providers Care Destination Sign Repairer Name Role Phone Bg Longoria MD Primary Care Provider [phone] Gabby Foster APRN, CABLE WEAVER Unavailable + [phone] Allergies No known active allergies Medications Medication [...] Overview: 2018, Ritesh Family in Retiring from [employer] 2021 Not much hobbies left Has kids and grandkids in Moving to [facility] in [place] 03/2022 Last Assessment & Plan: Yearly blood [...] TEAR REPAIR; Surgeon: Chace Victor MD; Location: [facility] MAIN OR Medical devices from this surgery are in the Medical Devices section. COLONOSCOPY 11/12/2017 N/A Procedure: COLONOSCOPY DIAGNOSTIC; Surgeon: Randy Frausto MD; Location: [facility] ENDOSCOPY Medical History Medical History Date [...] this topic Medical Devices Implanted Type Area Prints And Drawings Curator Device Identifier Shelf Expiration Date Model / Serial / Lot [place] Suture Double Loaded Swivelock 4.75 X 22 Mm Art [id number] - [id number] Implanted:Qty: 1 on 07/19/2017 by Chace Victor MD at [facility] Left: Shoulder ARTHREX 01/16/2019 [id number] / NA / [id number] Advance Directives For more information, please contact: [phone] Documents on File Type Date Recorded Patient Truck Cleaner Expl anation Advance Directive 06/07/2008 11:34 AM ADV ANCE DIRECTIVE Latest Code Status on File Code Status Date Activated Date Inactivated Comments Full Code 07/19/2017 3:48 PM 07/20/2017 4:11 PM Code Status History Code Status Date Activated Date Inactivated Comments Full Code 07/19/2017 10:49 AM 07/19/2017 3:48 PM Care Teams Destination Sign Repairer Relationship Specialty [place] [address] [place] [address] PCP - General Family Medicine 10/29/12 Gabby Foster LICENSED CLINICIAN, CABLE WEAVER [address] [place] [address] PCP - PC Team Family Medicine 10/30/16
--- OUTSIDE RECORDS SUMMARY | 2023-09-19 09:55 | XMS_ITS | Encounter Summary ---
Author Name Unknown Organization [facility] Address [address] [address] Phone Care Team Providers Care Cafeteria Or Lunchroom Checker Name Role Phone Bg Longoria MD Primary Care Provider Gabby oFster APRN, PRODUCT DESIGN SPECIALIST Unavailable + [phone] Reason for Referral * (Routine) - New Request Specialty Diagnoses / Procedures Referred By Garcia ingram Referred To Contact Endoscopy Diagnoses History of colon polyps Randy Frausto MD [address] [address] [facility] Endoscopy [address] [place] [address] Referral ID Status Reason Start Date Expiration Date V isits Requested Visits Authorized [id number] New Request 04/03/2023 04/03/2024 1 1 Question Answer Schedule procedure for: Screening Colonoscopy Comments 5 year Encounter Details Date Type Department Care Team (Late st Contact Info) Description 04/03/2023 Orders Only [facility] GI [address] [place], [place] [phone] Randy Frausto MD [address] [id number] History of colon polyps (Primary Dx) Social [...] polyps documented in this encounter Care Teams Cafeteria Or Lunchroom Checker Relationship Specialty [place] [address] [place] [address] PCP - General Family Medicine 10/29/12 Gabby Foster APRN, PRODUCT DESIGN SPECIALIST [address] [place] [phone] PCP - PC Team Family Medicine 10/30/16 documented as of this encounter
--- OUTSIDE RECORDS SUMMARY | 2023-09-19 09:55 | XMS_ITS | Encounter Summary ---
Author Name Unknown Organization [facility] [employer] [facility] Address [address] [address] Phone Care Team Providers Care Padder Name Role Phone Vinh Youssef MD Primary Care Provider Gabby Foster APRN, CANDY DEPOSITING MACHINE OPERATOR Unavailable + [phone] Reason for Visit * Reason Comments Refill Request Baclofen Encounter Details Date Type Department Care Team (Late st Contact Info) Description 01/22/2023 Refill [facility] MEDICINE [address] [place] [address] [place] [address] [place] [address] Refill Request (Baclofen) Social History [...] unable to refill this medication per the [facility] Medication Refill Protocol. Would you [...] 75 MG capsule (Recommended on 12/14/2022) [facility] Embedded Refills, Reference: [id number], 01/22/2023 6:44:53 PM CDT, Pool: FRANK ([id number]) documented in this encounter Plan of Treatment [...] documented as of this encounter Care Teams Padder Relationship Specialty [place] [address] [facility] [phone] PCP - General Family Medicine 10/29/12 Gabby Foster, OVER THE ROAD DRIVER, CANDY DEPOSITING MACHINE OPERATOR [address] [facility] [address] PCP - PC Team Family Medicine 10/30/16 documented as of this encounter
--- OUTSIDE RECORDS SUMMARY | 2023-09-19 09:55 | XMS_ITS | Data Portability ---
Author Name Unknown Address [address] [place] [address] Phone [phone] Organization [facility] Address [address] [facility] [address] [place] [address] Assessment No assessment recorded. Plan of Treatment Reminders Order Date Submit Date Provider Last Modified By Organization Details Last Modified Time Details Appointments None recorded. Lab PSA, total, serum or plasma 2021 [email or web address] Not available 12:33:41 Referral None recorded. Procedures None recorded. Surgeries None recorded. Imaging None recorded. Medication Orders tamsulosin 0.4 mg capsule 2021 [id number], [address], [place], [address], 12:25:05 Patient TargetsNo targets recorded. Patient InstructionsNo [...] Time Bladder Scan completed Pascual Kaplan MD [address] [place] [address],[address], [place], [address], [facility] 07/02/2022 11:44:47 Imaging Results Imaging Date [...] Updated DateTime 07/02/2022 182.88 cm 35.9 kg/m2 736051.98 g Pascual Kaplan MD [address] [place] [address], [phone] 07/02/2022 11:41:53 Social History Question Answer Notes LastModified by Organizat ion Details LastModified Time Tobacco Smoking Status Never Smoker Pascual Kaplan MD [address] [place] [address],[address], [address], [facility] 07/02/2022 11:42:13 What Was The Date Of Your Most Recent Tobacco Screening? 07/02/2022 [email or web address] Information not available 07/02/2022 Sex: Male Functional Status None recorded. Mental Status None recorded. Family History Nothing Reported. Medical History No medical history recorded. Past Encounters Encounter ID Performer Location Encounter Start Date Encounter Closed Date Diagnosis/Indication [id number] Pascual Kaplan MD _Christy [address] [facility] [place] [address] 07/02/2022 11:36:33 07/05/2022 16:00:18 Lower urinary tract symptoms due to benign prostatic hypertrophy Health Concerns Section Related Observation LastModified by Organization Detai ls LastModified Time None Recorded Concern Status LastModified by Organization Details LastModified Time None Recorded Advance Directives Directive None Recorded Payers Encounter Date Sequence Insurance Name Policy Number Policy Evans Covered Member ID Evans Member ID Guarantor Name 07/02/2022 1 [facility]: [employer] 111 Leonides Vo [id number] Leonides oV Notes Date Note Type Note Provider Name [...] (12/28/19) - 0.87 (05/17/21) Pascual Kaplan MD [address] [place] [address],[address], [place], [address], [facility] [place] [facility] 07/02/2022 23:02:08
--- OUTSIDE RECORDS SUMMARY | 2023-09-19 09:55 | XMS_ITS | Encounter Summary ---
Author Name Unknown Organization [facility] Address [address] [address] Phone Care Team Providers Care Cake Inspector Name Role Phone Bg Longoria MD Primary Care Provider Gabby Foster APRN, PORT PURSER Unavailable + [phone] Encounter Details Date Type Department Care Team (Late st Contact Info) Description 06/21/2017 HISTORY and PHYSICAL PREOP [facility] [address] [place] [address] Chace Victor MD [address] [place] [address] Social History Tobacco Use Types [...] Victor MD - 06/21/2017 6:56 AM CDT [facility] Patient Name: CHAMP VO Rosa Isela Date of Service: 06/21/2017 : [...] [place]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 Lives in the [facility]. HABITS: Nonsmoker. Social alcohol use. EXAM: On [...] of his questions answered. Chace Victor MD [facility] Orthopedics cc: /CM Job ID: [id number] /[email or web address](txt) Document ID: [id number] documented in this encounter Plan of Treatment Not on file documented as of this encounter Visit Diagnoses Not on filedocumented in this encounter Care Teams Cake Inspector Relationship Specialty [place] [address] [place] [phone] PCP - General Family Medicine 10/29/12 Gabby Foster, DEBT RECOVERY OFFICER, PORT PURSER [address] [place] [address] PCP - PC Team Family Medicine 10/30/16 documented as of this encounter
--- OUTSIDE RECORDS SUMMARY | 2023-09-19 09:55 | XMS_ITS | Encounter Summary ---
Author Name Unknown Organization [facility] [employer] [facility] Address [address] [address] Phone Care Team Providers Care Technical Specialist Cytology Name Role Phone Bg Longoria MD Primary Care Provider [phone] Gabby Foster APRN, GARNETT FIXER Unavailable + [phone] Reason for Visit * Reason Comments Refill Request Baclofen Encounter Details Date Type Department Care Team (Late st Contact Info) Description 03/01/[address] [facility] MEDICINE [address] [place] [address] [place] [address] [place] [address] Refill Request (Baclofen) Social History [...] to refill this medication per the [facility] Medication Refill Protocol. Would you like to [...] documented as of this encounter Care Teams Technical Specialist Cytology Relationship Specialty [place] [address] [place] [address] PCP - General Family Medicine 10/29/12 Gabby Foster, HEADWAITER/HEADWAITRESS, GARNETT FIXER [address] [place] [address] PCP - PC Team Family Medicine 10/30/16 documented as of this encounter
--- OUTSIDE RECORDS SUMMARY | 2023-09-19 09:55 | XMS_ITS | Encounter Summary ---
Author Name Unknown Organization [facility] Address [address] [address] Phone Care Team Providers Care Ict Project Manager Name Role Phone Bg Longoria MD Primary Care Provider Gabby Foster APRN, DEVELOPMENT OFFICER Unavailable + [phone] Reason for Visit * Reason Comments Refill Request baclofen (Lioresal) 10 MG Encounter Details Date Type Department Care Team (Late st Contact Info) Description 12/14/[address] [facility] [address] [place] [address] [place] [address] [place] [address] Refill Request (baclofen (Lioresal) 10 [...] unable to refill this medication per the [facility] Medication Refill Standing Orders. Medication cannot be [...] documented as of this encounter Care Teams Ict Project Manager Relationship Specialty [place] [address] [place] [address] PCP - General Family Medicine 10/29/12 Gabby Foster, SALES TRAINEE, DEVELOPMENT OFFICER [address] [place] [phone] PCP - PC Team Family Medicine 10/30/16 documented as of this encounter
--- OUTSIDE RECORDS SUMMARY | 2023-09-19 09:55 | XMS_ITS | Encounter Summary ---
Author Name Unknown Organization [facility] [employer] [facility] Address [address] [address] Phone Care Team Providers Care Actor Understudy Name Role Phone Bg Longoria MD Primary Care Provider Gabby Foster APRN, BIOSTATISTICS MANAGER Unavailable + [phone] Reason for Visit * Reason Comments Refill Request baclofen Encounter Details Date Type Department Care Team (Late st Contact Info) Description 08/05/2022 Refill [facility] MEDICINE [address] [place] [address] [place] [address] [place] [address] Refill Request (baclofen) Social History [...] unable to refill this medication per the [facility] Medication Refill Standing Orders. Would you like to authorize this request? Thank You. PRINTING MACHINE OPERATOR documented in this encounter Plan of Treatment [...] documented as of this encounter Care Teams Actor Understudy Relationship Specialty [place] [address] [place] [address] PCP - General Family Medicine 10/29/12 Gabby Foster, FORGE UTILITY WORKER, BIOSTATISTICS MANAGER [address] [place] [address] PCP - PC Team Family Medicine 10/30/16 documented as of this encounter
--- NOTE | 2023-09-19 10:00 | CRLHL7_ITS ---
For Patients: As a result of the Century Cures Act, medical imaging exams and procedure reports are released immediately into your electronic medical record. You may view this report before your referring provider. If you have questions, please contact your health care provider. Indication: Pulmonary nodules Technique: Noncontrast CT chest Please note that all CT scans at this facility use dose modulation, iterative reconstruction, and/or weight-based dosing when appropriate to reduce radiation dose to as low as reasonably achievable. Comparison: 03/12/2023 Findings: Atherosclerotic changes are present. Fatty atrophy of the pancreas. No adrenal nodule. No hiatal hernia. Spleen is not enlarged. No calcified gallstones. No suspicious thyroid lesion. Punctate calcification upper pole left kidney. Calcified pleural plaques again noted. Increased ill-defined densities within both lung bases. No pleural effusion. No fracture. Impression: Chronic asbestos related pleural disease, unchanged. Stable subpleural calcified densities. No suspicious pulmonary nodule. Increased bilateral lower lobe parenchymal densities suspicious for developing asbestosis. Please note that all CT scans at this facility use dose modulation, iterative reconstruction, and/or weight-based dosing when appropriate to reduce radiation dose to as low as reasonably achievable. Dictated by Jose Santos MD @ 09/19/2023 12:31:35 PM (Electronically Signed)
== END 2023-09-19 09:51 | disposition home or self-care (01) ==
LOC: CT 09:51
PROVIDERS: PCP Family Medicine; Visit Provider Family Medicine
DX: R91.1 Solitary pulmonary nodule (principal)
CPT/HCPCS: 71250

== ENCOUNTER 2023-10-28 09:09 | Outpatient (CLI) | payer BC, SELFPAY | END 2023-10-28 09:10 | disposition home or self-care (01) | LOC: NFLDREF 10-30 07:42 | PROVIDERS: PCP Family Medicine; Referring Provider Family Medicine; Visit Provider Family Medicine | DX: I25.10 Atherosclerotic heart disease of native coronary artery without angina pectoris (principal) | CPT/HCPCS: 80061 ==

== ENCOUNTER 2024-05-30 12:22 | Outpatient (CLI) | payer BC, SELFPAY ==
--- OUTSIDE RECORDS SUMMARY | 2024-05-30 12:25 | XMS_ITS | Clinical Summary ---
Author Organization [place] Address [address] [place] [address] Care Team Providers Care Manager Law Name Role Phone Unavailable Primary Care Provider [...] COLONOGRAPHY 1953 FIT 1953 FLEX SIG 1953 GLUCOSE 1953 sDNA (Cologuard) 1953 COLONOSCOPY 12/19/1963 COLORECTAL CANCER SCREENING 12/19/1963 HEPATITIS C SCREENING 12/19/1971 LIPID 1993 FALL RISK ASSESSMENT 2018 Pneumococcal Vaccine: 65+ Years (2 of 2 - PCV) 06/11/2022 06/11/2021 PHQ-2 (once per calendar year) 2023 COVID-19 Vaccine ( - season) 2024 11/29/2021, 05/28/2021, 11/04/2020, Additional history exists INFLUENZA VACCINE (#1) 2024 , 05/28/2021, 05/28/2021, Additional history exists RSV VACCINE (1 - 1-dose 75+ series) 2028 DTAP/TDAP/TD IMMUNIZATION (5 - Td or Tdap) [...]
--- OUTSIDE RECORDS SUMMARY | 2024-05-30 12:26 | XMS_ITS | Encounter Summary ---
Author Organization [facility] Address [address] [address] Phone Care Team Providers Care District Plant Supervisor Name Role Phone Bg Longoria MD Primary Care Provider Gabby Foster APRN, ENGINEER INTERN Unavailable + [phone] Reason for Visit * Reason Comments Refill Request baclofen Encounter Details Date Type Department Care Team (Late st Contact Info) Description 08/05/[address] [facility] MEDICINE [address] [place] [address] [place] [address] [place] [address] Refill Request (baclofen) Social History [...] Miscellaneous Notes * Telephone Encounter - Iris Manzanares, RN - 08/06/2022 1:55 AM CST Bg Longoria MD, Nurse Care Line is unable to refill this medication per the [facility] Medication Refill Standing Orders. Would you like to authorize this request? Thank You. ACT CENTER AGENT documented in this encounter Plan of Treatment [...] documented as of this encounter Care Teams District Plant Supervisor Relationship Specialty [place] [address] [place] [address] PCP - General Family Medicine 10/29/12 Gabby Foster, CT TECHNICIAN, ENGINEER INTERN [address] [place] [address] PCP - PC Team Family Medicine 10/30/16 documented as of this encounter
--- OUTSIDE RECORDS SUMMARY | 2024-05-30 12:26 | XMS_ITS | Encounter Summary ---
Author Organization [facility] Address [address] [address] Phone Care Team Providers Care Supervisor Molding Name Role Phone Bg Longoria MD Primary Care Provider Gabby Foster APRN, CLASSROOM INSTRUCTIONAL AIDE Unavailable + [phone] Reason for Visit * Reason Comments Refill Request Baclofen Encounter Details Date Type Department Care Team (Late st Contact Info) Description 03/01/2022 Refill [facility] MEDICINE [address] [place] [address] [place] [address] [place] [address] Refill Request (Baclofen) Social History [...] unable to refill this medication per the [facility] Medication Refill Protocol. Would you like to [...] documented as of this encounter Care Teams Supervisor Molding Relationship Specialty [place] [address] [place] [address] PCP - General Family Medicine 10/29/12 Gabby Foster, WILDERNESS GUIDE, CLASSROOM INSTRUCTIONAL AIDE [address] [place], [place] [address] PCP - PC Team Family Medicine 10/30/16 documented as of this encounter
--- OUTSIDE RECORDS SUMMARY | 2024-05-30 12:26 | XMS_ITS | Clinical Summary ---
Author Organization [facility] Address [address] [address] Phone Care Team Providers Care Powder Press Operator Name Role Phone Vinh Youssef MD Primary Care Provider Gabby Foster APRN, [employer] WEBSPH[employer] COMMERCE DEVELOPER Unavailable + [phone] Allergies No known active allergies Medications Medication Sig Dispensed Refills Start Date End Date Status aspirin EC 81 MG tablet Take 1 Tab by mouth one time a day. Do not split or crush. 100 Tab 10/16/2016 Active cholecalciferol, vitamin D3, 1000 Unit [...] Pain . Administer with food. 90 Tablet 2021 Active baclofen (Lioresal) 10 MG tabletIndications:St rain of lumbar region, initial encounter TAKE ONE TABLET BY MOUTH THREE TIMES DAILY with food. NEEDS APPOINTMENT BY 02/21/2023 FOR MORE REFILLS. 60 Tablet 01/23/2023 Active Active Problems Problem Noted Date Diagnosed Date Routine general medical exam ination at a health care facility 05/17/2021 Overview: 2019, Ritesh Family in [place] Retiring from [facility] 2021 Not much hobbies left Has kids and grandkids in Moving to [facility] in [place] 03/2022 Last Assessment & Plan: Yearly blood [...] Influenza Seasonal A,B Inj 6-35mo 06/17/2018 Influenza Trivalent Preservative Free 06/19/2012 Influenza Trivalent Preserva tive Free (High Dose) 07/28/2019 Influenza Trivalent With Preservative 05/28/2021 Pneumovax 23 06/11/2021 TD >7yrs With Preservative 03/20/2005 Tdap (7 years and older) 12/07/2019,10/24/2012,0 03/20/2005 Zoster Zostavax (Shingles) 06/11/2021,11/02/2014 Surgical History Surgery Date Site/Laterality Comments ROTATOR CUFF REPAIR LUMBAR SPINE SURGERY L 5 COLONOSCOPY 10/2012 normal SHOULDER ARTHROSCOPY 07/19/2017 Shoulder/Left Procedure: LEFT SHOULDER ARTHROSCOPIC DECOMPRESSION, DISTAL CLAVICLE EXCISION, MINI-OPEN ROTATOR CUFF TEAR REPAIR; Surgeon: Chace Victor MD; Location: [facility] MAIN OR Medical devices from this surgery are in the Medical Devices section. COLONOSCOPY 11/12/2017 N/A Procedure: COLONOSCOPY DIAGNOSTIC; Surgeon: Randy Frausto MD; Location: [facility] ENDOSCOPY Medical History Medical History Date [...] 1955 Cologuard 1955 FIT/FOBT 1955 Sigmoidoscopy 1955 Shingrix (Zoster recombinant) vaccine (Standing Order) (1 of 2) 08/06/2021 Pneumococcal Vaccine: 65+ yrs (Standing Order) (2 of 2 - PCV) 06/11/2022 06/11/2021 COLONOSCOPY Q 5 YRS 11/12/2022 11/12/2017, 11/12/2017, 11/12/2012 (Previously completed) COVID-19 Vaccine (4 - season) 2024 05/28/2021, 11/04/2020, 10/12/2020 Influenza Vaccine Seasonal (Standing Order) (#1) 2024 05/28/2021, 06/22/2020, 07/28/2019, Additional history exists VASCULAR [...] this topic Medical Devices Implanted Type Area Shore Working Supervisor Device Identifier Shelf Expiration Date Model / Serial / Lot Bloomingrose Suture Double Loaded Swivelock 4.75 X 22 Mm Art [id number] - [id number] Implanted:Qty: 1 on 07/19/2017 by Chace Victor MD at [facility] Left: Shoulder ARTHREX 01/16/2019 [id number] / [id number] / [id number] Procedures Procedure Name Priority Date/Time Associated Diagnosis Comments LIPID PROFILE Routine 05/17/2021 8:53 AM CDT Mixed hyperlipidemia COLONOSCOPY PROCEDURE 11/12/2017 1:20 PM CDT Colon polyps from Last 3 Months or Most Recently Relevant to Health Maintenance Results * LIPID PANEL (05/17/2021 8:53 AM CDT) [facility] Signature Cholesterol 137 114 - 200 mg/dL 05/17/2021 9:47 AM CDT [facility] HDL Cholesterol 55 40 - 60 mg/dL 05/17/2021 9:47 AM CDT [facility] Triglycerides 51 10 - 200 mg/dL 05/17/2021 9:47 AM CDT [facility] LDL Cholesterol, Calculated 72 mg/dL 05/17/2021 9:47 AM CDT [facility] Blood BLOOD SPECIMEN / Unknown Venipuncture / Unknown 05/17/2021 8:53 AM CDT 05/17/2021 8:53 AM CDT Narrative [facility] - 05/17/2021 9:47 AM CDT ?Triglyceride If patient is non-fasting, the result of the triglyceride is invalid. ?? Triglyceride Reference Ranges ?? Normal: ?10-200 mg/dL ?? Borderline High: ??150-200 mg/dL ?? High: ? 201-499 mg/dL ?? Very High: ? =500 ?mg/dL Total Cholesterol Reference Ranges ?? Desirable: ? <200 ?mg/dL Borderline High: ?? 200-239 mg/dL High: ?>239 ?mg/dL Calculated LDL Cholesterol Reference Ranges ? Optimal: ?<100 ? mg/dL ? Near Optimal: ? 100-129 ??mg/dL ? Borderline High: ??130-159 ??mg/dL ? High: ? 160-189 ??mg/dL ? Very High: ?>189 ? mg/dL Vinh Youssef MD [facility] Organization Address City/State/ZIP Co de Phone Number [facility] [address] [place] [address], [facility] * COLONOSCOPY PROCEDURE (11/12/2017 1:20 PM CDT) Colonoscopy Procedure [facility] Patient Name: Leonides Vo ? Date of : 1955 ? Patient Status: Outpatient Age: 61 ? Gender: Male Race: White ? Note Status: Finalized Procedure Date No Time: 11/12/2017 ? Procedure: ? Colonoscopy Endoscopist: ? RANDY FRAUSTO MD Referring : ?VINH YOUSSEF MD Indications: ? High risk colon cancer surveillance: Personal history ? of sessile serrated colon polyp (less than 10 mm in ? size) with no dysplasia Procedure Medications: Midazolam 7 mg IV, Fentanyl 150 micrograms IV, ? Sedative medications given in increments to maintain ? adequate moderate sedation Procedure: ? Pre-Anesthesia Assessment: ? - Prior to the procedure, a History and Physical was ? performed, and patient medications and allergies were ? reviewed. The patient is competent. The risks and ? benefits of the procedure and the sedation options and ? risks were discussed with the patient. All questions ? were answered and informed consent was obtained. ? Patient identification and proposed procedure were ? verified by the physician and the nurse in the ? procedure room. Mental Status Examination: alert and ? oriented. Airway Examination: Mallampati Class II (the ? uvula but not tonsillar pillars visualized). ? Respiratory Examination: clear to auscultation. CV ? Examination: normal. Prophylactic Antibiotics: The ? patient does not require prophylactic antibiotics. ? Prior Anticoagulants: The patient has taken no ? previous anticoagulant or antiplatelet agents. ASA ? Grade Assessment: III - A patient with severe systemic ? disease. After reviewing the risks and benefits, the ? patient was deemed in satisfactory condition to ? undergo the procedure. The anesthesia plan was to use ? moderate sedation / analgesia (conscious sedation). ? Immediately prior to administration of medications, ? the patient was re-assessed for adequacy to receive ? sedatives. The heart rate, respiratory rate, oxygen ? saturations, blood pressure, adequacy of pulmonary ? ventilation, and response to care were monitored ? throughout the procedure. The physical status of the ? patient was re-assessed after the procedure. ? - Potential procedural risks, benefits and ? alternatives were explained to the patient including: ? drug reactions, bleeding, perforation, and missing ? important lesions. Informed consent was confirmed and ? the patient was deemed in satisfactory condition to ? undergo the procedure. Throughout the procedure, the ? patient's blood pressure, pulse, and oxygen ? saturations were monitored continuously. The Olympus ? pediatric variable stiffness scope was passed under ? direct vision through the anus and advanced to the the ? cecum, identified by appendiceal orifice and ileocecal ? valve. The colonoscopy was performed without ? difficulty. The patient tolerated the procedure well. ? The quality of the bowel preparation was good. ? Findings: ?The perianal and digital rectal examinations were ? normal. ? Multiple small and large-mouthed diverticula were ? found in the sigmoid colon. ? Internal hemorrhoids were found during retroflexion. ? The hemorrhoids were small. ? The exam was otherwise without abnormality on direct ? and retroflexion views. Complications: ? No immediate complications. Estimated Blood Loss: ? Estimated blood loss: none. Moderate Sedation: ? Moderate (conscious) sedation was administered by the endoscopy nurse ? and supervised by the endoscopist. The patient's oxygen saturation, ? heart rate, blood pressure and response to care were monitored. Total ? physician intraservice time was 20 minutes. Impression: ?61yoM who presents for surveillance colonoscopy. Last ? colonoscopy in 2013 with serrated adenoma. ? - Diverticulosis in the sigmoid colon. ? - Internal hemorrhoids. ? - The examination was otherwise normal on direct and ? retroflexion views. ? - No specimens collected. Recommendation: ?- Patient has a contact number available for ? emergencies. ? - The signs and symptoms of potential delayed ? complications were discussed with the patient. ? - Return to normal activities tomorrow. ? - Okay to resume prior diet. ? - Written discharge instructions were provided to the ? patient. ? - Repeat colonoscopy in 5 years for surveillance ? purposes given prior history of serrated adenoma. Randy Frausto M.D. RANDY FRAUSTO MD 11/12/2017 2:21:57 PM This report has been signed electronically. ? [address] [place] [address] Procedure Report [facility] 11/12/2017 1:20 PM CDT Randy Frausto MD EC PROCEDURES RUBEN WALL from Last 3 Months or Most Recently Relevant to Health Maintenance Advance Directives For more information, please contact: [phone] Documents on File Type Date Recorded Patient Global Chief Creative Officer Expl anation Advance Directive 06/07/2008 11:34 AM ADV ANCE DIRECTIVE * Full Code (Latest Code Status on File) Date Activated Date Inactivated Comments 07/19/2017 3:48 PM 07/20/2017 4:11 PM * Full Code Date Activated Date Inactivated Comments 07/19/2017 10:49 AM 07/19/2017 3:48 PM Care Teams Powder Press Operator Relationship Specialty [place] [address] [place] [address] PCP - General Family Medicine 10/29/12 Gabby Foster APRN, [employer] WEBSPH[employer] COMMERCE DEVELOPER [address] [facility] [phone] PCP - PC Team Family Medicine 10/30/16
--- OUTSIDE RECORDS SUMMARY | 2024-05-30 12:26 | XMS_ITS | Encounter Summary ---
Author Organization [facility] Address [address] [address] Phone Care Team Providers Care Cyanide Case Hardener Name Role Phone gB Longoria MD Primary Care Provider Gabby Foster APRN, CAR BODY MECHANIC Unavailable + [phone] Reason for Visit * Reason Comments Refill Request baclofen (Lioresal) 10 MG Encounter Details Date Type Department Care Team (Late st Contact Info) Description 12/14/2022 Refill MEDICINE [address] [place] [address] [place] [address] [place] [address] Refill Request (baclofen (Lioresal) 10 [...] THREE TIMES DAILY with food 60 Tablet 12/14/2022 01/22/2023 documented in this encounter Miscellaneous Notes * Telephone Encounter - Jes Hardwick, RN - 12/14/2022 3:41 PM CDT Bg Longoria MD, Nurse Care Line is unable to refill this medication per the [facility] Medication Refill Standing Orders. Medication cannot [...] documented as of this encounter Care Teams Cyanide Case Hardener Relationship Specialty [place] [address] [place] [phone] PCP - General Family Medicine 10/29/12 Gabby Foster, CUSTOMER CARE CONSULTANT, CAR BODY MECHANIC [address] [place] [phone] PCP - PC Team Family Medicine 10/30/16 documented as of this encounter
--- OUTSIDE RECORDS SUMMARY | 2024-05-30 12:26 | XMS_ITS | Encounter Summary ---
Author Organization [facility] Address [address] [address] Phone Care Team Providers Care Tacker Off Name Role Phone Bg Longoria MD Primary Care Provider Gabby Foster APRN, [employer] P[employer] Unavailable + [phone] Encounter Details Date Type Department Care Team (Late st Contact Info) Description 06/21/2017 HISTORY and [address]YSICAL PREOP [facility] [address] [place] [phone] Chace Victor MD [address] [place] [address] Social History Tobacco Use Types [...] Victor MD - 06/21/2017 6:56 AM CDT [facility] Patient Name: CHAMP VO Date of Service: 06/21/2017 : 1955 Age: [...] 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 Lives in the [facility]. HABITS: Nonsmoker. Social alcohol use. EXAM: On [...] of his questions answered. Chace Victor MD [facility] Orthopedics cc: /CM Job ID: [id number] /[email or web address](txt) Document ID: [id number] documented in this encounter Plan of Treatment Not on file documented as of this encounter Visit Diagnoses Not on filedocumented in this encounter Care Teams Tacker Off Relationship Specialty [place] [address] [place] [phone] PCP - General Family Medicine 10/29/12 Gabby Foster, CHANNELER RUNNER, SHIP'[employer] PILOT [address] [place] [phone] PCP - PC Team Family Medicine 10/30/16 documented as of this encounter
--- OUTSIDE RECORDS SUMMARY | 2024-05-30 12:26 | XMS_ITS | Referral Summary ---
Author Organization [facility] Address [address] [place], [place] [id number] Care Team Providers Care Horse Race Starter Name Role Phone Unavailable Primary Care Provider [...]
== END 2024-05-30 12:23 | disposition home or self-care (01) ==
PROVIDERS: PCP Family Medicine; Visit Provider Nurse Practitioner Family
DX: R06.09 Other forms of dyspnea (principal); R11.0 Nausea; R10.9 Unspecified abdominal pain
CPT/HCPCS: 82150; 83690

== ENCOUNTER 2024-05-31 09:55 | Emergency (ER) | payer BC, SELFPAY ==
[2024-05-31 10:02] VITALS: BP 104/73; PULSE 107; RESP 18; TEMP 36.2; O2SAT 97; BMI 34.6
--- NOTE | 2024-05-31 11:15 | ED_ITS ---
HPI - General Adult General Chief complaint: Abdominal Pain Stated complaint: Was advised to see Kimberly Time Seen by Provider: 05/31/24 10:47 History of Present Illness HPI narrative: This 68-year-old male was called by urgent care provider because of results of the x-ray that was done yesterday of his abdomen. There was some possibility of ileus or obstruction because of some air-fluid levels on the x-ray. The patient was advised to come here for further evaluation. He arrives here with reassuring vital signs. He states that he is passing a small amount of stool and has passed gas. He does have symptoms of constipation. He is not reporting any abdominal pain. He is taking liquids but has not had a reasonable bowel movement for about 3 days. He has had some difficulty trying to pass stool. He states that he has been taking Wegovy for the past couple months. He has not had any diarrhea. Related Data Home Medications ?Medication ?Instructions ?Recorded ?Confirmed aspirin 81 mg tablet,delayed 81 mg PO QDAY 04/10/22 05/30/24 release Previous Rx's ?Medication ?Instructions ?Recorded gabapentin 300 mg capsule 300 mg PO TID #270 caps 09/23/23 amlodipine 10 mg tablet 10 mg PO QDAY #90 tabs 10/17/23 losartan 100 mg tablet 100 mg PO QDAY #90 tabs 10/17/23 atorvastatin 40 mg tablet 40 mg PO QPM #90 tabs 01/21/24 baclofen 10 mg tablet 10 mg PO TID #180 tabs 03/24/24 doxepin 75 mg capsule 150 mg (2 x 75 mg) PO .qhs #180 03/24/24 caps eszopiclone 3 mg tablet 3 mg PO .qhs #30 tabs 03/24/24 minocycline 50 mg capsule 50 mg PO QDAY #90 caps 03/24/24 semaglutide (weight loss) 1.7 1.7 mg (0.75 mL) subcut QWEEK #3 mL 03/24/24 mg/0.75 mL subcutaneous pen injector (Wegovy) semaglutide (weight loss) 2.4 2.4 mg (0.75 mL) subcut QWEEK #3 mL 03/24/24 mg/0.75 mL subcutaneous pen injector (Wegovy) doxycycline hyclate 100 mg capsule 100 mg PO BID 7 days #14 caps 05/30/24 Allergies Allergy/AdvReac Type Severity Reaction Status Date / Time No Known Allergies Allergy Verified 05/30/24 11:59 Review of Systems Status of ROS: Reports: 10 or more systems reviewed and unremarkable except as noted in History and below Narrative: Constitutional: No fevers, no weight gain or loss. Eyes: No discharge. No vision changes. HENT: No congestion, no sore throat, no ear pain. Cardiovascular: No chest pain, no palpitations. Respiratory: No shortness of breath, no wheezes, no cough. Gastrointestinal: No abdominal pain, no vomiting, no diarrhea. He reports constipation symptoms. Genitourinary: No dysuria, no hematuria. Musculoskeletal: Normal range of motion. Skin: No rashes, no pruritis. Neurological: No dizziness, weakness, sensory change, speech change. Endo/Heme/Allergies: No bruising or bleeding. No polydipsia. Pysch: no suicidality, no anxiety, no insomnia. All other systems reviewed and are negative. [facility] Medical History (Updated 05/31/24 @ 11:20 by Simeon Harris MD) Rosacea ?L71.9 - Rosacea, unspecified (ICD-10) Actinic keratoses ?L57.0 - Actinic keratosis (ICD-10) Prediabetes ?R73.03 - Prediabetes (ICD-10) Obesity ?E66.9 - Obesity, unspecified (ICD-10) Back pain ?M54.9 - Dorsalgia, unspecified (ICD-10) Onychomycosis ?B35.1 - Tinea unguium (ICD-10) Foot pain, right ?M79.671 - Pain in right foot (ICD-10) DJD (degenerative joint disease) of knee ?M17.9 - Osteoarthritis of knee, unspecified (ICD-10) Seborrheic keratosis ?L82.1 - Other seborrheic keratosis (ICD-10) Keratosis, seborrheic ?L82.1 - Other seborrheic keratosis (ICD-10) Obesity (BMI 30-39.9) ?E66.9 - Obesity, unspecified (ICD-10) Skin lesions, generalized ?L98.9 - Disorder of the skin and subcutaneous tissue, unspecified (ICD-10) Insomnia ?G47.00 - Insomnia, unspecified (ICD-10) Lung nodule seen on imaging study ?R91.1 - Solitary pulmonary nodule (ICD-10) Psychophysiological insomnia ?F51.04 - Psychophysiologic insomnia (ICD-10) Overactive bladder ?N32.81 - Overactive bladder (ICD-10) IFG (impaired fasting glucose) ?R73.01 - Impaired fasting glucose (ICD-10) Coronary artery disease due to lipid rich plaque ?I25.10 - Atherosclerotic heart disease of samish coronary artery without angina pectoris (ICD-10) ?I25.83 - Coronary atherosclerosis due to lipid rich plaque (ICD-10) History of hypertension ?Z86.79 - Personal history of other diseases of the circulatory system (ICD- 10) Hx of hyperlipidemia ?Z86.39 - Personal history of other endocrine, nutritional and metabolic disease (ICD-10) Hx of gastroesophageal reflux (GERD) ?Z87.19 - Personal history of other diseases of the digestive system (ICD-10) Hx of colonic polyps ?Z86.010 - Personal history of colonic polyps (ICD-10) History of anxiety ?Z86.59 - Personal history of other mental and behavioral disorders (ICD-10) Surgical History (Updated 03/24/24 @ 11:49 by Cecil Avilez MD) History of arthroscopy of shoulder ?Z98.890 - Other specified postprocedural states (ICD-10) H/O Spinal surgery ?Z98.890 - Other specified postprocedural states (ICD-10) H/O repair of rotator cuff ?Z98.890 - Other specified postprocedural states (ICD-10) Family History (Updated 03/22/22 @ 09:27 by Mercedez Dykes) Brother Lung cancer Schizophrenia Brother Cardiovascular disease Diabetes Father Diabetes Elevated lipids Mother Vascular disease Social History (Updated 03/22/22 @ 09:47 by Mercedez Dykes) Smoking Status: Former smoker Little interest or pleasure in doing things: not at all Feeling down, depressed, or hopeless: not at all Exam Narrative: Exam Narrative: Constitutional: Well-developed, well-nourished, no acute distress. HEENT: Normocephalic, atraumatic. Neck: Normal range of motion. Nontender. Supple. Heart: Regular. No murmurs. Normal rate. Intact distal pulses. Lungs: Clear to auscultation. No chest discomfort. No wheezes, rhonchi, or rales. Abdomen: Normal bowel sounds. Nontender. No rebound tenderness. Genitalia: Deferred. Back: No midline tenderness. Normal range of motion. Extremities: Normal range of motion. No injury. Skin: Intact. No rash. Warm. No erythema or pallor. Neurologic: No altered sensation. No weakness. Alert and oriented. Psychiatric: No suicidality. No anxiety or depression. No insomnia. Nursing notes and vitals signs are reviewed. Const: Vital Signs, click to edit/add: Vital Signs - 24 hr 05/31/24 10:02 Temperature 97.2 F L Pulse Rate [Right Pulse Oximeter] 107 H Respiratory Rate 18 Blood Pressure [Ri ght Upper Arm] 104/73 Pulse Oximetry 97 Oxygen Delivery Me thod Room Air Course Vital Signs Vital signs: Initial Vital Signs Temperature 97.2 F L 05/31/24 10:02 Temperature Source Temporal Artery Scan 05/31/24 10:02 Pulse Rate 107 H 05/31/24 10:02 Respiratory Rate 18 05/31/24 10:02 Blood Pressure 104/73 05/31/24 10:02 Blood Pressure Mean 83 05/31/24 10:02 Blood Pressure Position Sitting 05/31/24 10:02 Pulse Oximetry 97 05/31/24 10:02 Oxygen Delivery Method Room Air 05/31/24 10:02 Vital Signs Temperature 97.2 F L 05/31/24 10:02 Pulse Rate 107 H 05/31/24 10:02 Respiratory Rate 18 05/31/24 10:02 Blood Pressure 104/73 05/31/24 10:02 Pulse Oximetry 97 05/31/24 10:02 Oxygen Delivery Method Room Air 05/31/24 10:02 Temperature 97.2 F L 05/31/24 10:02 Pulse Rate 107 H 05/31/24 10:02 Respiratory Rate 18 05/31/24 10:02 Blood Pressure 104/73 05/31/24 10:02 Pulse Oximetry 97 05/31/24 10:02 Oxygen Delivery Method Room Air 05/31/24 10:02 Medical Decision Making MDM Narrative Medical decision making narrative: This patient comes in because of x-ray report that showed a possibility of obstruction or ileus. His symptoms currently arm much more suggestive of constipation. He does not have any abdominal pain or sense of distention. He has normal bowel sounds and no rebound tenderness. He has had some small stool past but with difficulty typical of constipation. He states that he has some MiraLax at home but has not started taking this yet. He has had colonoscopy in the past with reassuring results. He states that there were some polyps but he has not had any other complication. I did discuss lab and imaging options today but indicated reassurance is with his exam and vital signs. He declined any further study at this time. I did recommend using [id number] medicines to treat constipation such as MiraLax, senna, magnesium citrate, and others. I also described how he can use an enema at home. Discharge Plan Discharge Clinical Impression: Constipation Patient Disposition: Home, Self-Care Condition: Stable Additional Instructions: Take plenty of fluids. Use [id number]-[id number] medicines as needed and directed to treat constipation symptoms. And enema can also be very effective. Consider using a Fleet's enema or any brand of enema available at the pharmacy. Follow up with MD return if worsening. Prescriptions: No Action doxepin 75 mg capsule 150 mg PO .qhs Qty: 180 3RF eszopiclone 3 mg tablet 3 mg PO .qhs Qty: 30 5RF Wegovy 1.7 mg/0.75 mL pen injector 1.7 mg subcut QWEEK Qty: 3 1RF Rx Instructions: administer weeks 13 through 16 of therapy Wegovy 2.4 mg/0.75 mL pen injector 2.4 mg subcut QWEEK Qty: 3 4RF baclofen 10 mg tablet 10 mg PO TID Qty: 180 1RF minocycline 50 mg capsule 50 mg PO QDAY Qty: 90 1RF doxycycline hyclate 100 mg capsule 100 mg PO BID 7 Days Qty: 14 0RF aspirin 81 mg tablet,delayed release (DR/EC) 81 mg PO QDAY gabapentin 300 mg capsule 300 mg PO TID Qty: 270 3RF amlodipine 10 mg tablet 10 mg PO QDAY Qty: 90 3RF losartan 100 mg tablet 100 mg PO QDAY Qty: 90 3RF atorvastatin 40 mg tablet 40 mg PO QPM Qty: 90 2RF Follow Up/Referrals: Cecil Avilez MD [Primary Care Provider] - Stand Alone Forms: [facility] Info Instructions
--- OUTSIDE RECORDS SUMMARY | 2024-05-31 11:20 | XMS_ITS | Clinical Summary ---
Author Organization [facility] Address [address] [place] [address] Care Team Providers Care Therapist Phys Name Role Phone Unavailable Primary Care Provider [...]
--- OUTSIDE RECORDS SUMMARY | 2024-05-31 11:20 | XMS_ITS | Referral Summary ---
Author Organization [facility] Address [address] [place], [place] [id number] Care Team Providers Care Speech And Language Specialist Name Role Phone Unavailable Primary Care Provider [...]
--- OUTSIDE RECORDS SUMMARY | 2024-05-31 11:20 | XMS_ITS | Clinical Summary ---
Author Organization [facility] Address [address] [address] Phone Care Team Providers Care Hide Cooking Operator Name Role Phone Vinh oYussef MD Primary Care Provider Gabby Foster APRN, BEAM DYER RECESSED VAT Unavailable + [phone] Allergies No known active allergies Medications Medication [...] 2019, Ritesh Family in [place] Retiring from [employer] 2021 Not much hobbies left Has kids and grandkids in Moving to [facility] in [place] 03/2022 Last Assessment & Plan: Yearly blood [...] TEAR REPAIR; Surgeon: Chace Victor MD; Location: [facility] MAIN OR Medical devices from this surgery are in the Medical Devices section. COLONOSCOPY 11/12/2017 N/A Procedure: COLONOSCOPY DIAGNOSTIC; Surgeon: Randy Frausto MD; Location: [facility] ENDOSCOPY Medical History Medical History Date [...] this topic Medical Devices Implanted Type Area Brand Marketing Intern Device Identifier Shelf Expiration Date Model / Serial / Lot Daniels Suture Double Loaded Swivelock 4.75 X 22 Mm Art [id number] - [id number] Implanted:Qty: 1 on 07/19/2017 by Chace Victor MD at [facility] Left: Shoulder ARTHREX 01/16/2019 [id number] / [id number] / [id number] Procedures Procedure Name Priority Date/Time Associated Diagnosis Comments LIPID PROFILE Routine 05/17/2021 8:53 AM CDT Mixed hyperlipidemia COLONOSCOPY PROCEDURE 11/12/2017 1:20 PM CDT Colon polyps from Last 3 Months or Most Recently Relevant to Health Maintenance Results * LIPID PANEL (05/17/2021 8:53 AM CDT) [facility] Signature Cholesterol 137 114 - 200 mg/dL 05/17/2021 9:47 AM CDT [facility] HDL Cholesterol 55 40 - 60 mg/dL 05/17/2021 9:47 AM CDT [facility] Triglycerides 51 10 - 200 mg/dL 05/17/2021 9:47 AM CDT [facility] LDL Cholesterol, Calculated 72 mg/dL 05/17/2021 9:47 AM CDT [facility] Blood BLOOD SPECIMEN / Unknown Venipuncture / Unknown 05/17/2021 8:53 AM CDT 05/17/2021 8:53 AM CDT Narrative [facility] - 05/17/2021 9:47 AM CDT ?Triglyceride [...] mg/dL Vinh Youssef MD [facility] Organization Address City/State/ZIP Co de Phone Number [facility] [address] [place] [address], [facility] * COLONOSCOPY PROCEDURE (11/12/2017 1:20 PM CDT) Colonoscopy Procedure [facility] Patient Name: Leonides Vo ? [...] report has been signed electronically. ? [address] [place] [address] Procedure Report [facility] 11/12/2017 1:20 PM CDT Randy Frausto MD EC PROCEDURES RUBEN WALL from Last 3 Months or Most Recently Relevant to Health Maintenance [address] [facility] [place] [address] Leonides Vo Behavioral Health Self 1955 [address] [facility] [place], [place] [address] Leonides Vo Workers Comp Self 1955 [address] [facility] [place], [place] [address] Leonides Vo Workers Comp Self 1955 [address] [facility] [place], [place] [address] Leonides Vo Third Democrat Liability Self 1955 [address] [facility] [place], [place] [address] Leonides Vo Workers Comp Self 1955 [address] [facility] [place], [place] [address] Leonides Vo Personal/Family Self 1955 [address] [facility] [place], [place] [address] Advance Directives For more information, please contact: [phone] Documents on File Type Date Recorded Patient Instructional Technology Facilitator Expl anation Advance Directive 06/07/2008 11:34 AM ADV ANCE DIRECTIVE * Full Code (Latest Code Status on File) Date Activated Date Inactivated Comments 07/19/2017 3:48 PM 07/20/2017 4:11 PM * Full Code Date Activated Date Inactivated Comments 07/19/2017 10:49 AM 07/19/2017 3:48 PM Care Teams Hide Cooking Operator Relationship Specialty [place] [address] [place] [address] PCP - General Family Medicine 10/29/12 Gabby Foster APRN, BEAM [place] [address] [place] [phone] PCP - PC Team Family Medicine 10/30/16
--- OUTSIDE RECORDS SUMMARY | 2024-05-31 11:21 | XMS_ITS | Encounter Summary ---
Author Organization [facility] Address [address] [address] Phone Care Team Providers Care Consumer Insight Manager Name Role Phone Bg Longoria MD Primary Care Provider Gabby Foster APRN, BRICKLAYER PAVING BRICK Unavailable + [phone] Encounter Details Date Type Department Care Team (Late st Contact Info) Description 06/21/2017 HISTORY and PHYSICAL PREOP [facility] [address] [place] [id number] Chace Victor MD [address] [place] [address] Social History Tobacco Use Types [...] Victor MD - 06/21/2017 6:56 AM CDT [facility] Patient Name: CHAMP VO Date of Service: [...] [place]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 Lives in the [facility]. HABITS: Nonsmoker. Social alcohol use. EXAM: On [...] of his questions answered. Chace Victor MD [facility] Orthopedics cc: /CM Job ID: [id number] [email or web address]) Document ID: [id number] documented in this encounter Plan of Treatment Not on file documented as of this encounter Visit Diagnoses Not on filedocumented in this encounter Care Teams Consumer Insight Manager Relationship Specialty [place] [address] [place] [phone] PCP - General Family Medicine 10/29/12 Gabby Foster, ADVERTISING EXECUTIVE, BRICKLAYER PAVING BRICK [address] [place] [phone] PCP - PC Team Family Medicine 10/30/16 documented as of this encounter
--- OUTSIDE RECORDS SUMMARY | 2024-05-31 11:21 | XMS_ITS | Encounter Summary ---
Author Organization [facility] Address [address] [address] Phone Care Team Providers Care Obstetrical Nurse Name Role Phone Bg Longoria MD Primary Care Provider Gabby Foster APRN, VALET RUNNER Unavailable + [phone] Reason for Visit * Reason Comments Refill Request Baclofen Encounter Details Date Type Department Care Team (Late st Contact Info) Description 03/01/[address] [facility] [address] [place] [address] [place] [address] [place] [address] Refill Request (Baclofen) Social History [...] unable to refill this medication per the [facility] Medication Refill Protocol. Would you [...] documented as of this encounter Care Teams Obstetrical Nurse Relationship Specialty [place] [address] [place] [phone] PCP - General Family Medicine 10/29/12 Gabby Foster, LNA, VALET RUNNER [address] [place] [address] PCP - PC Team Family Medicine 10/30/16 documented as of this encounter
--- OUTSIDE RECORDS SUMMARY | 2024-05-31 11:21 | XMS_ITS | Encounter Summary ---
Author Organization [facility] Address [address] [address] Phone Care Team Providers Care Silver Recovery Operator Name Role Phone Bg Longoria MD Primary Care Provider Gabby Foster APRN, DRAWER WAXER Unavailable + [phone] Reason for Visit * Reason Comments Refill Request baclofen Encounter Details Date Type Department Care Team (Late st Contact Info) Description 08/05/[address] [facility] [address] [place] [address] [place] [address] [place] [address] Refill Request (baclofen) Social History [...] unable to refill this medication per the [facility] Medication Refill Standing Orders. Would you like to authorize this request? Thank You. D AND PLASMA LABORATORY ASSISTANT documented in this encounter Plan of Treatment [...] documented as of this encounter Care Teams Silver Recovery Operator Relationship Specialty [place] [address] [place] [phone] PCP - General Family Medicine 10/29/12 Gabby Foster, DEICER REPAIRER, DRAWER WAXER [address] [place] [phone] PCP - PC Team Family Medicine 10/30/16 documented as of this encounter
--- OUTSIDE RECORDS SUMMARY | 2024-05-31 11:21 | XMS_ITS | Encounter Summary ---
Author Organization [facility] Address [address] [address] Phone Care Team Providers Care Medical Director Name Role Phone Bg Longoria MD Primary Care Provider Gabby Foster APRN, HUMAN SERVICES ASSISTANT Unavailable + [phone] Reason for Visit * Reason Comments Refill Request baclofen (Lioresal) 10 MG Encounter Details Date Type Department Care Team (Late st Contact Info) Description 12/14/2022 Refill [facility] [address] [place] [address] [place] [address] [place] [address] Refill Request (baclofen (Lioresal) 10 [...] unable to refill this medication per the [facility] Medication Refill Standing Orders. Medication cannot [...] documented as of this encounter Care Teams Medical Director Relationship Specialty [place] [address] [place] [phone] PCP - General Family Medicine 10/29/12 Gabby Foster, SONAR WATCHSTANDER, HUMAN SERVICES ASSISTANT [address] [place] [phone] PCP - PC Team Family Medicine 10/30/16 documented as of this encounter
== END 2024-05-31 11:28 | disposition home or self-care (01) ==
PROVIDERS: Emergency Provider Emergency Medicine Emergency Medical Services; PCP Family Medicine
DX: K59.00 Constipation, unspecified (principal)
CPT/HCPCS: 99283; 99284

== ENCOUNTER 2024-09-22 09:29 | Outpatient (CLI) | payer BC, SELFPAY | END 2024-09-22 09:30 | disposition home or self-care (01) | PROVIDERS: PCP Family Medicine; Visit Provider Family Medicine | DX: R73.03 Prediabetes (principal); E66.9 Obesity, unspecified; I10 Essential (primary) hypertension; E78.00 Pure hypercholesterolemia, unspecified; Z12.5 Encounter for screening for malignant neoplasm of prostate | CPT/HCPCS: 80053; 80061; G0103 ==

== ENCOUNTER 2024-10-01 08:34 | Outpatient (CLI) | payer BC, SELFPAY | END 2024-10-01 08:35 | disposition home or self-care (01) | LOC: MRI 08:35 | PROVIDERS: PCP Family Medicine; Visit Provider Family Medicine | DX: M54.10 Radiculopathy, site unspecified (principal); M51.26 Other intervertebral disc displacement, lumbar region; M51.369 Other intervertebral disc degeneration, lumbar region without mention of lumbar back pain or lower extremity pain; M51.379 Other intervertebral disc degeneration, lumbosacral region without mention of lumbar back pain or lower extremity pain | CPT/HCPCS: 72148 ==

== ENCOUNTER 2024-10-15 07:50 | Outpatient (CLI) | payer BC, SELFPAY | END 2024-10-15 07:51 | disposition home or self-care (01) | LOC: MRI 07:51 | PROVIDERS: PCP Family Medicine; Visit Provider Family Medicine | DX: M54.12 Radiculopathy, cervical region (principal); M47.892 Other spondylosis, cervical region; M48.02 Spinal stenosis, cervical region; M50.222 Other cervical disc displacement at C5-C6 level; R29.898 Other symptoms and signs involving the musculoskeletal system | CPT/HCPCS: 72141 ==